=== PATIENT | male | born 1945 | race Caucasian/White ===

== ENCOUNTER → 2017-09-20 15:31 | Outpatient (CLI) | payer BC, MEDICARE, SELFPAY ==
--- NOTE | 2017-09-20 15:35 | DI.RAD.S_ITS ---
PROCEDURE: XR CHEST 2V INDICATIONS: shortness of breath TECHNIQUE: 2 views of the chest were acquired. COMPARISON: None. FINDINGS: Surgical changes and devices: None. Lungs and pleura: No pleural effusions or pneumothorax. Mild appearance of increased pulmonary vascularity. Mediastinum: Mediastinal contours are normal. Heart size is normal. Bones and chest wall: No suspicious bony abnormalities. Soft tissues appear unremarkable. IMPRESSION: Mild increased pulmonary vascularity suggestive of edema. Dictated by: Jesi Madrigal M.D. on 09/20/2017 at 15:29 Approved by: Jesi Madrigal M.D. on 09/20/2017 at 15:32
[2017-09-20 20:52] LABS: Thyroid Stimulating Hormone < 0.02 uIU/mL (0.47-4.68)
== END ==
PROVIDERS: Family Provider Family Medicine; PCP Family Medicine; Visit Provider Family Medicine
DX: E03.9 Hypothyroidism, unspecified (principal); R06.02 Shortness of breath
CPT/HCPCS: 36415; 71046; 84439; 84443

== ENCOUNTER → 2017-12-30 15:48 | Outpatient (CLI) | payer BC, MEDICARE, SELFPAY ==
[2017-12-30 17:25] LABS: Free T4, Direct Thyroxine 1.49 ng/dL (0.78-2.19)
[2017-12-30 17:39] LABS: Thyroid Stimulating Hormone < 0.02 uIU/mL (0.47-4.68)
== END ==
PROVIDERS: Family Provider Family Medicine; PCP Family Medicine; Visit Provider Family Medicine
DX: E03.9 Hypothyroidism, unspecified (principal)
CPT/HCPCS: 36415; 84439; 84443

== ENCOUNTER → 2018-06-18 07:01 | Outpatient (CLI) | payer MEDICARE, OTHER, SELFPAY ==
[2018-06-18 08:12] LABS: Add Manual Diff / Slide Review NO; Basophils Absolute Auto 0 /uL (0-100); Basophils Percent Auto 0.3 % (0-2); Eosinophils Absolute Auto 300 /uL (0-450); Eosinophils Percent Auto 8.2 % (2-4); Hemoglobin 16.1 g/dL (13.5-17.5); Lymphocytes Absolute Auto 600 /uL (1100-4500); Lymphocytes Percent Auto 19.7 % (25-40); Mean Corpuscular HGB Conc 33.6 % (30-36); Mean Corpuscular Hemoglobin 31.7 PG (26-34); Mean Corpuscular Volume 94.5 fL (80-100); Monocytes Absolute Auto 400 /uL (0-900); Monocytes Percent Auto 12.3 % (3-14); Neutrophils Absolute Auto 1900 /uL (1500-7000); Neutrophils Percent Auto 59.5 % (50-75); Platelet Count 257 X10^3/uL (150-400); Red Blood Cell Count 5.09 X10^6/uL (4.5-5.9); Red Cell Distribution Width 13.6 % (11.6-14.8); White Blood Cell Count 3.2 X10^3/uL (4.5-11.0)
[2018-06-18 08:35] LABS: Alanine Aminotransferase 34 IU/L (21-72); Albumin 4.1 g/dL (3.5-5.0); Albumin Globulin Ratio 1.4 (1.0-2.8); Alkaline Phosphatase 72 U/L (38-126); Aspartate Aminotransferase 34 IU/L (17-59); Bilirubin Total 1.6 mg/dL (0.2-1.3); Blood Urea Nitrogen 22 mg/dL (9-20); Calcium 9.1 mg/dL (8.4-10.2); Carbon Dioxide 31 mmol/L (22-32); Chloride 102 mmol/L (98-107); Cholesterol 249 mg/dL (140-199); Estimated Glomerular Filt Rate > 60.0 mL/min (>60); Glucose 100 mg/dL (80-110); HDL Cholesterol 47 mg/dL (40-60); HEMOLYSIS < 15 (0-50); LDL Cholesterol Calculated 187 mg/dL (<100); Potassium 4.3 mmol/L (3.4-5.1); Sodium 140 mmol/L (137-145); Total Protein 7.1 g/dL (6.3-8.2); Triglycerides 74 mg/dL (35-150)
[2018-06-18 09:24] LABS: Thyroid Stimulating Hormone 1.71 uIU/mL (0.47-4.68)
[2018-06-21 15:52] LABS: PSA Free % 20 % (calc) (> 25); PSA, Total 1.5 ng/mL (< 4.1)
== END ==
PROVIDERS: PCP Family Medicine; Visit Provider Family Medicine
DX: E03.9 Hypothyroidism, unspecified (principal); R97.20 Elevated prostate specific antigen [PSA]; Z13.220 Encounter for screening for lipoid disorders
CPT/HCPCS: 36415; 80053; 80061; 84153; 84154; 84439; 84443; 85025

== ENCOUNTER 2019-03-17 06:31 | Day surgery (SDC) | payer MEDICARE, OTHER, BC, SELFPAY ==
[2019-03-17] MEDS: PROPARACAINE 0.5% OPHTH SOL 2 DROPS EYE-OP (07:10)
[2019-03-17] MEDS: CATARACT EYE COMPOUND (10 DROPS/SYRINGE) 3 DROPS EYE-OP (07:11)
[2019-03-17 07:13] VITALS: BP 152/83; PULSE 48; RESP 16; TEMP 36.5; O2SAT 97; BMI 54.8
--- NOTE | 2019-03-17 07:47 | PM.PREOP ---
Pre-operative Note Interval Note History & Physical reviewed/Exam performed by Physician: No Changes to H&P: No
--- NOTE | 2019-03-17 07:47 | PM.OP.1 ---
Operative Date/Time/Diagnoses Pre-op diagnosis: Nuclear cataract right eye Procedure & Clinicians Procedure: Cataract Surgery Same procedure as scheduled: Yes Surgeon: Pedro Li Anesthesia Type: MAC +/- and Sedation Operative Notes Procedure in detail: Patient brought to the operating suite. Tetracaine drops placed in the right eye. The marking instrument was used to diana the vertical and horizontal meridians. Patient was prepped and draped in sterile manner. Wire lid speculum was placed in the eye. The marking instrument was used to diana the 170 degree meridian. Betadine drops were placed on the eye. This was irrigated. Lidocaine jelly was placed on the eye. A paracentesis port was created with a side-port blade. 0.1 mL 1% preservative free lidocaine was injected into the anterior chamber. The anterior chamber was deepened with viscoelastic. 2.6 mm keratome was used to create a temporal clear corneal incision. Cystotome and Utrata forceps were used to create continuous tear capsulorrhexis. Balanced salt solution was used to hydro dissect the nucleus. The phacoemulsification handpiece was inserted and the nucleus was removed using the stop and chop technique. The irrigation aspiration handpiece was inserted and the remaining cortex was removed. Anterior chamber was deepened with viscoelastic. An Duncan [id number] intraocular lens with a power of 20.5 was injected into the capsular bag. Irrigation aspiration handpiece was inserted and the remaining viscoelastic was removed. The lens was rotated to the 170 degree meridian. Incision was hydrated with balanced salt solution and found to be leak free with pressure with Weck-Roxy sponges. 0.1 mL Vigamox injected anterior chamber. 0.3 mL Kenalog 10 mg was injected subconjunctivally. Lid speculum was removed. The patient left the operating room in excellent condition. Complications: none Post-operative Condition: stable Disposition: same day surgery
[2019-03-17] MEDS: PHENYLEPHRINE/LIDOCAINE VIAL (OR) 0.2 ML EYE-OP (07:59)
[2019-03-17] MEDS: MOXIFLOXACIN INJ 5 MG/ML VIAL EYE-OP (07:59)
[2019-03-17] MEDS: TRIAMCINOLONE 50 MG/5 ML VIAL INJ (08:00)
[2019-03-17] MEDS: TETRACAINE 0.5% OPHTH DROPS 4 ML 2 DROPS EYE-OP (08:00)
[2019-03-17] MEDS: BALANCED SALT IRRIG SOLN NO.2 500 ML, EPINEPHrine 1 MG IRR (08:00)
[2019-03-17] MEDS: CHONDROIDTIN/SOD HYALURONATE 1.05 ML SYRINGE INTRAOCULA (08:00)
[2019-03-17] MEDS: LIDOCAINE JELLY 2% 5 ML 1 APPLIC TOP (08:00)
[2019-03-17 08:16] VITALS: BP 156/83; PULSE 47; RESP 16; TEMP 36.7; O2SAT 98
== END 2019-03-17 08:33 | disposition home or self-care (01) ==
PROVIDERS: Visit Provider Ophthalmology
PROC: (CPT 66984; principal; 2019-03-17 07:45)
DX: H25.11 Age-related nuclear cataract, right eye (principal)
CPT/HCPCS: 66984; J0171; J2250; J3010; J3301; V2787

== ENCOUNTER 2019-03-31 06:36 | Day surgery (SDC) | payer MEDICARE, BC, OTHER, SELFPAY ==
[2019-03-31] MEDS: PROPARACAINE 0.5% OPHTH SOL 2 DROPS EYE-OP (07:07)
[2019-03-31] MEDS: CATARACT EYE COMPOUND (10 DROPS/SYRINGE) 3 DROPS EYE-OP (07:08)
[2019-03-31 07:10] VITALS: BP 195/92; PULSE 54; RESP 20; TEMP 36.7; O2SAT 98; BMI 24.4
[2019-03-31] MEDS: LIDOCAINE JELLY 2% 5 ML 1 APPLIC TOP (07:58)
[2019-03-31] MEDS: MOXIFLOXACIN INJ 5 MG/ML VIAL EYE-OP (07:58)
[2019-03-31] MEDS: CHONDROIDTIN/SOD HYALURONATE 1.05 ML SYRINGE INTRAOCULA (07:58)
[2019-03-31] MEDS: TRIAMCINOLONE 50 MG/5 ML VIAL INJ (07:59)
[2019-03-31] MEDS: TETRACAINE 0.5% OPHTH DROPS 4 ML 2 DROPS EYE-OP (07:59)
[2019-03-31] MEDS: PHENYLEPHRINE/LIDOCAINE VIAL (OR) 0.2 ML EYE-OP (07:59)
[2019-03-31] MEDS: BALANCED SALT IRRIG SOLN NO.2 500 ML, EPINEPHrine 1 MG IRR (08:00)
--- NOTE | 2019-03-31 08:08 | PM.PREOP ---
Pre-operative Note Interval Note History & Physical reviewed/Exam performed by Physician: No Changes to H&P: No
--- NOTE | 2019-03-31 08:08 | PM.OP.1 ---
Operative Date/Time/Diagnoses Pre-op diagnosis: Nuclear Cataract Left eye Post-op diagnosis: same Procedure & Clinicians Surgeon: Pedro Li Anesthesia Type: MAC +/- and Sedation Operative Notes Procedure in detail: Patient brought to the operating suite. Tetracaine drops placed in the left eye. The marking instrument was used to diana the vertical and horizontal meridians. Patient was prepped and draped in sterile manner. Wire lid speculum was placed in the eye. The 10 degree meridian was marked. Betadine drops were placed on the eye. This was irrigated. Lidocaine jelly was placed on the eye. A paracentesis port was created with a side-port blade. 0.1 mL 1% preservative free lidocaine was injected into the anterior chamber. The anterior chamber was deepened with viscoelastic. 2.6 mm keratome was used to create a temporal clear corneal incision. Cystotome and Utrata forceps were used to create continuous tear capsulorrhexis. Balanced salt solution was used to hydro dissect the nucleus. The phacoemulsification handpiece was inserted and the nucleus was removed using the stop and chop technique. The irrigation aspiration handpiece was inserted and the remaining cortex was removed. Anterior chamber was deepened with viscoelastic. An Duncan [id number] intraocular lens with a power of 20.0 was injected into the capsular bag. Irrigation aspiration handpiece was inserted and the remaining viscoelastic was removed. The lens was rotated to the 10 degree meridian. Incision was hydrated with balanced salt solution and found to be leak free with pressure with Weck-Roxy sponges. 0.1 mL Vigamox injected anterior chamber. 0.3 mL Kenalog 10 mg was injected subconjunctivally. Lid speculum was removed. The patient left the operating room in excellent condition. Complications: none Post-operative Condition: stable Disposition: same day surgery
[2019-03-31 08:15] VITALS: BP 139/82; PULSE 46; RESP 16; TEMP 36.3; O2SAT 96
--- NOTE | 2019-03-31 08:25 | SUR.PHASEII ---
stable post op, dressing c/d/i.
== END 2019-03-31 08:25 | disposition home or self-care (01) ==
PROVIDERS: PCP Family Medicine; Visit Provider Ophthalmology
PROC: (CPT 66984; principal; 2019-03-31 07:45)
DX: H25.12 Age-related nuclear cataract, left eye (principal)
CPT/HCPCS: 66984; J0171; J2250; J3010; J3301; V2787

== ENCOUNTER → 2019-04-13 06:51 | Outpatient (CLI) | payer MEDICARE, OTHER, SELFPAY ==
[2019-04-13 08:01] LABS: Alanine Aminotransferase 18 IU/L (<50); Albumin 3.8 g/dL (3.5-5.0); Albumin Globulin Ratio 1.4 (1.0-2.8); Alkaline Phosphatase 78 U/L (38-126); Aspartate Aminotransferase 30 IU/L (17-59); BUN Creatinine Ratio 28.8 (6-22); Bilirubin Total 1.4 mg/dL (0.2-1.3); Blood Urea Nitrogen 23 mg/dL (9-20); Calcium 8.7 mg/dL (8.4-10.2); Carbon Dioxide 30 mmol/L (22-32); Chloride 102 mmol/L (98-107); Cholesterol 206 mg/dL (140-199); Estimated Glomerular Filt Rate > 60.0 mL/min (>60); Globulin 2.8 g/dL (1.7-4.1); Glucose 105 mg/dL (80-110); HDL Cholesterol 47 mg/dL (40-60); HEMOLYSIS < 15 (0-50); LDL Cholesterol Calculated 146 mg/dL (<100); Potassium 4.4 mmol/L (3.4-5.1); Sodium 137 mmol/L (137-145); Total Protein 6.6 g/dL (6.3-8.2); Triglycerides 63 mg/dL (35-150)
[2019-04-13 08:02] LABS: Hemoglobin A1C% w Est Avg Glu 5.3 % (4.0-6.0)
[2019-04-13 08:43] LABS: TSH w/ Reflex to FT4 3.63 uIU/mL (0.47-4.68)
== END ==
PROVIDERS: PCP Family Medicine; Visit Provider Family Medicine
DX: E03.9 Hypothyroidism, unspecified (principal); E78.00 Pure hypercholesterolemia, unspecified; Z13.1 Encounter for screening for diabetes mellitus; Z13.220 Encounter for screening for lipoid disorders; E11.9 Type 2 diabetes mellitus without complications
CPT/HCPCS: 36415; 80053; 80061; 83036; 84443

== ENCOUNTER → 2019-09-28 16:22 | Outpatient (CLI) | payer MEDICARE, OTHER, SELFPAY ==
[2019-09-28 18:22] LABS: TSH w/ Reflex to FT4 3.91 uIU/mL (0.47-4.68)
== END ==
PROVIDERS: PCP Family Medicine; Referring Provider Family Medicine; Visit Provider Family Medicine
DX: E03.9 Hypothyroidism, unspecified (principal)
CPT/HCPCS: 36415; 84443

== ENCOUNTER → 2019-10-29 07:10 | Outpatient (CLI) | payer MEDICARE, OTHER, SELFPAY ==
--- NOTE | 2019-10-29 07:11 | DI.US.S_ITS ---
PROCEDURE: US ABD AORTA ANEURYSM SCREEN INDICATIONS: HISTORY SMOKING TECHNIQUE: Real time scanning was performed of the aorta and iliac arteries, with image documentation. COMPARISON: None. FINDINGS: Aorta: Proximal aortic diameter measures 2.2 cm. Mid-aorta measures 1.7 cm. Distal aortic diameter is 1.8 cm. Iliac arteries: Right common iliac artery measures 1.5 cm. Left common iliac artery measures 2.2 x 2.9 cm in maximal axial dimension ovary fusiform 6.9 cm length. IMPRESSION: The aorta is free of aneurysm as is the right common iliac artery but there is aneurysmal dilatation with a fusiform morphology over the left common iliac artery measuring up to 2.2 by 2.9 cm in maximal axial dimension. Dictated by: Ghassan Ibrahim M.D. on 10/29/2019 at 8:21 Approved by: Ghassan Ibrahim M.D. on 10/29/2019 at 8:23
== END ==
PROVIDERS: PCP Family Medicine; Referring Provider Family Medicine; Visit Provider Family Medicine
DX: Z13.6 Encounter for screening for cardiovascular disorders (principal); I72.3 Aneurysm of iliac artery; Z87.891 Personal history of nicotine dependence
CPT/HCPCS: 76706

== ENCOUNTER → 2019-11-23 14:39 | Outpatient (CLI) | payer MEDICARE, OTHER, SELFPAY ==
[2019-11-24 16:26] LABS: COVID19 Sendout Not Detected (Not Detect)
== END ==
PROVIDERS: PCP Family Medicine; Visit Provider Physician Assistant
DX: Z11.59 Encounter for screening for other viral diseases (principal)
CPT/HCPCS: 87635

== ENCOUNTER 2019-11-26 07:36 | Day surgery (SDC) | payer MEDICARE, OTHER, SELFPAY ==
--- NOTE | 2019-11-26 | PATH_ITS ---
[facility] Accession Number: [id number] . 01 Material submitted: . colon - BIOPSY NEAR CECUM . 02 Diagnosis: Cecum, Biopsy: Colonic mucosa with no diagnostic abnormality. Negative for active, chronic, and microscopic colitis. Negative for dysplasia and malignancy. . [facility] 12/01/2019 1553 Local . 02 Electronically signed: . Kirti Garnica MD, Pathologist NPI- [id number] . 01 Gross description: . BIOPSY NEAR CECUM: Received in formalin is 1 fragment(s) of johnston, soft tissue measuring 0.4 x 0.4 x 0.1 cm submitted entirely in 1 cassette(s) /QBJ 11/27/2019 0738 Local . 02 Microscopic: . . . 02 Pathologist provided ICD-10: Z12.11 . 02 CPT . 036376 Performed at: 01 [facility] [address], [place], [place] [id number] MD Jose E Mendoza MD Phone: [phone] Performed at: [facility] [address] [place], [place] [id number] MD Kirti Garnica MD Phone: [phone]
[2019-11-26 08:00] VITALS: BMI 24.4
[2019-11-26 08:03] VITALS: BP 156/88; PULSE 58; RESP 18; TEMP 36.6; O2SAT 97
[2019-11-26] MEDS: LACTATED RINGERS 1,000 ML 200 ML IV (08:03)
--- NOTE | 2019-11-26 08:19 | PM.HP.1 ---
History of Present Illness History of Present Illness Date Patient Seen: 11/26/19 Time Patient Seen: 08:20 Chief complaint: SDC Narrative: The patient is a gentleman whose last colonoscopy was over a decade ago. He is here for screening colonoscopy. He has no personal history of polyps and no family history of colon cancer Patient History Medical History Actinic keratosis (Resolved Unknown) Basal cell carcinoma (Resolved ~03/2015) Benign non-nodular prostatic hyperplasia with lower urinary tract symptoms (07/29/15) BPH (benign prostatic hyperplasia) (Chronic Unknown) COPD (chronic obstructive pulmonary disease) (Chronic) Dupuytren's contracture of both hands (09/27/16) Dupuytren's contracture of both hands (Chronic Unknown) Essential tremor (07/23/17) Hypothyroidism (Chronic 01/20/15) Hypothyroidism (Chronic Unknown) Iliac artery aneurysm, left (Acute) Pure hypercholesterolemia (12/19/15) Rosacea (07/23/17) Rosacea (Chronic Unknown) Surgical History H/O hand surgery (Resolved ~2001) Family & Social History Family History Brother Age: 76 Prostate cancer Brother Age: 74 Type 2 diabetes mellitus without complication Father No problems noted. Mother No problems noted. Social History: household members spouse Tobacco & Substance use: Smoking Status Former smoker alcohol intake current alcohol intake frequency 0-2 drinks per day Substance Use Type does not use Meds Home Medications and Allergies Home Medications Medication Instructions Recorded Confirmed Type naproxen sodium [Aleve] 220 mg PO DAILY #0 10/09/12 11/26/19 History albuterol sulfate 90 mcg/actuation 2 puff INHALATION Q4-6H PRN #8 gram 09/20/17 11/26/19 Rx aerosol inhaler tamsulosin 0.4 mg capsule 0.4 mg PO BEDTIME #90 cap 04/10/19 11/26/19 Rx levothyroxine 88 mcg tablet 88 mcg PO DAILY #90 tab 09/28/19 11/26/19 Rx sodium,potassium,mag sulfates 17.5 177 ml PO DAILY #354 ml 11/17/19 11/26/19 Rx gram-3.13 gram-1.6 gram oral soln melatonin 5 mg 11/26/19 History Allergies Allergy/AdvReac Type Severity Reaction Status Date / Time No Known Drug Allergies Allergy Verified 11/26/19 08:10 Review of Systems Review of Systems ROS: Yes All systems reviewed with the patient and are negative except as otherwise documented Exam Vital Signs (past 8 hours): - 11/26/19 08:03 Temperature 97.9 F Pulse Rate 58 L Respiratory Rate 18 Blood Pressure 156/88 H Pulse Oximetry 97 Oxygen Delivery Method Room Air Narrative Exam Narrative: Pleasant cooperative patient no apparent distress. Lungs are clear to auscultation. No rales or rhonchi. Heart regular rate and rhythm no murmur gallop. Abdomen is soft nontender without mass. No obvious hernias. Patient is alert and oriented x3. Assessment & Plan Assessment & Plan narrative: The patient for a screening colonoscopy. I have discussed the procedure with them. Risks of bleeding, perforation which would necessitate major operation, failure to find remove all lesions, the potential tattoo were all discussed. All questions were answered. They wished to proceed.
--- NOTE | 2019-11-26 08:29 | PM.PREOP ---
Pre-operative Note COVID-19 COVID-19 status: Negative Result date/Date tested (Pos, Neg/Pending): 11/23/19 Interval Note History & Physical reviewed/Exam performed by Physician: Yes Changes to H&P: No ASA Class (for procedural sedation): I
[2019-11-26] MEDS: MIDAZOLAM 5 MG/5 ML VIAL IV (08:44)
[2019-11-26] MEDS: fentaNYL 250 MCG/5 ML INJ IV (08:49)
--- NOTE | 2019-11-26 09:05 | PM.OP.ENDO ---
Operative Date/Time/Diagnoses Date of procedure: 11/26/19 Time of procedure: 09:05 Pre-op diagnosis: Screening exam for colon cancer. Last colonoscopy over a decade ago. Post-op diagnosis: same (One tiny lesion near the cecum. May not be neoplastic. Sigmoid diverticulosis.) Procedure & Clinicians Study performed: Colonoscopy with cold biopsy Same procedure as scheduled: Yes Indications: Screening Surgeon: Anthony Simms Procedure Notes SCOAP/Timeout: Perform Procedure in detail: The patient was placed in the left lateral decubitus position and underwent IV sedation directed by the surgeon consisting of fentanyl and Versed. Digital exam was remarkable for an enlarged prostate. No palpable masses.. The scope was inserted and advanced through the rectum into the sigmoid, descending, transverse, and ascending colon. There was a great deal of tortuosity in the sigmoid and diverticulosis. Pressure had to be applied to the abdomen in order to reach the cecum. The cecum was reached identified by the ileocecal valve and the appendiceal opening. There was a tiny lesion just distal to the cecum which I biopsied and removed. I am not even sure this is neoplastic. The scope was gradually brought out. No other lesions were found . The scope ultimately was retroflexed in the rectum. The appearance was normal. The scope was removed and the patient tolerated the procedure well. Prep was excellent. Scope withdrawal time: 7 minutes Sedation minutes: 31 Findings: diverticulosis (Sigmoid colon), polyp (Possible in the ascending colon near the cecum.) and other findings (Enlarged prostate) Specimen(s): other (Lesion her cecum) Complications: none Post-procedure Recommendations: Colonscopy in 5 years (If the biopsy is not neoplastic then no further screening colonoscopies are recommended due to age. Await pathology report), High fiber diet (Eat a lot of fruit and vegetables) and Other recommendation (Consider taking Metamucil daily) Follow up: as needed Disposition: PACU
[2019-11-26 09:12] VITALS: BP 146/83; PULSE 55; RESP 12; TEMP 36.2; O2SAT 96
[2019-11-26 09:14] VITALS: BP 161/86; PULSE 66; RESP 14; TEMP 36.5; O2SAT 95
--- NOTE | 2019-11-26 09:15 | SUR.PHASEI ---
Patient awake. Tolerating po.
[2019-11-26 09:20] VITALS: BP 147/79; PULSE 56; RESP 12; O2SAT 94
[2019-11-26 09:25] VITALS: BP 148/82; PULSE 65; RESP 16; TEMP 36.2; O2SAT 95
[2019-11-26 09:40] VITALS: BP 127/68; PULSE 49; RESP 16; TEMP 36.6; O2SAT 94
== END 2019-11-26 09:50 | disposition home or self-care (01) ==
PROVIDERS: PCP Family Medicine; Referring Provider Family Medicine; Visit Provider Specialist
PROC: 0DJD8ZZ Inspection of Lower Intestinal Tract, Via Natural or Artificial Opening Endoscopic (ICD-10-PCS; CPT 45378; principal; 2019-11-26 08:45)
DX: Z12.11 Encounter for screening for malignant neoplasm of colon (principal); J44.9 Chronic obstructive pulmonary disease, unspecified; K57.30 Diverticulosis of large intestine without perforation or abscess without bleeding; N40.1 Benign prostatic hyperplasia with lower urinary tract symptoms
CPT/HCPCS: 45380; 99152; 99153; J2250; J3010

== ENCOUNTER → 2020-04-04 09:54 | Outpatient (CLI) | payer MEDICARE, OTHER, SELFPAY ==
[2020-04-04 10:48] LABS: Alanine Aminotransferase 31 IU/L (<50); Albumin 3.9 g/dL (3.5-5.0); Albumin Globulin Ratio 1.4 (1.0-2.8); Alkaline Phosphatase 88 U/L (38-126); Aspartate Aminotransferase 38 IU/L (17-59); BUN Creatinine Ratio 29.7 (6-22); Bilirubin Total 1.3 mg/dL (0.2-1.3); Blood Urea Nitrogen 27 mg/dL (9-20); Carbon Dioxide 32 mmol/L (22-32); Chloride 103 mmol/L (98-107); Cholesterol 143 mg/dL (140-199); Estimated Glomerular Filt Rate > 60.0 mL/min (>60); Globulin 2.8 g/dL (1.7-4.1); Glucose 102 mg/dL (80-110); HDL Cholesterol 50 mg/dL (40-60); HEMOLYSIS < 15 (0-50); LDL Cholesterol Calculated 82 mg/dL (<100); Potassium 4.6 mmol/L (3.4-5.1); Sodium 138 mmol/L (137-145); Total Protein 6.7 g/dL (6.3-8.2); Triglycerides 54 mg/dL (35-150)
[2020-04-04 11:25] LABS: TSH w/ Reflex to FT4 2.66 uIU/mL (0.47-4.68)
== END ==
PROVIDERS: PCP Family Medicine; Referring Provider Family Medicine; Visit Provider Family Medicine
DX: E03.9 Hypothyroidism, unspecified (principal); Z12.5 Encounter for screening for malignant neoplasm of prostate; E78.00 Pure hypercholesterolemia, unspecified; I72.3 Aneurysm of iliac artery
CPT/HCPCS: 36415; 80053; 80061; 84443; G0103

== ENCOUNTER 2020-07-17 17:31 | Emergency (ER) | payer MEDICARE, OTHER, SELFPAY ==
[2020-07-17] VITALS (13 sets, daily range): BP systolic 142–196; BP diastolic 78–109; PULSE 54–63; RESP 18–23; TEMP 36.4; O2SAT 92–98; BMI 26.2
--- NOTE | 2020-07-17 17:50 | DI.CT.S_ITS ---
PROCEDURE: CT HEAD/BRAIN WO CON INDICATIONS: possible seizure TECHNIQUE: Noncontrast 4.5 mm thick angled axial sections acquired from the foramen magnum to the vertex, with coronal and sagittal reformats. For radiation dose reduction, the following was used: automated exposure control, adjustment of mA and/or kV according to patient size. COMPARISON: None. FINDINGS: Image quality: Excellent. CSF spaces: Basal cisterns are patent. No extra-axial fluid collections. The ventricles are symmetric in size and shape. Brain: No intracranial bleeds or masses. There is cerebral volume loss for age, with resultant ventricular and sulcal prominence. There are periventricular and deep white matter chronic small vessel ischemic changes. There is intracranial internal carotid artery atherosclerosis. Skull and face: Calvarium and visualized facial bones appear intact, without suspicious lesions. Sinuses: Visualized sinuses and mastoids are clear. IMPRESSION: No acute intracranial process. Dictated by: Jason Rosales M.D. on 07/17/2020 at 18:33 Approved by: Jason Rosales M.D. on 07/17/2020 at 18:37
--- NOTE | 2020-07-17 18:09 | ED_ITS ---
HPI - Neuro Symptoms/Deficit General Chief Complaint: Neuro Symptoms/Deficit Stated Complaint: POSS SEIZURE Time Seen by Provider: 07/17/20 17:44 Source: patient Mode of arrival: Family Vehicle Limitations: no limitations History of Present Illness HPI Narrative: 74M former smoker with history of COPD, HTN, hypothyroid presents with family and the chief complaint of seizurelike activity a few hours prior to arrival. He was home alone and this was unwitnessed. He did lose control of his bladder. He is unsure how long his episode lasted but he states he started feeling a bit lightheaded and then became short of breath, he does state that he did not lose consciousness and was aware of the entire episode. He denies any chest pain or shortness of breath. He is completely at baseline in all symptoms had resolved prior to his arrival. He denies any history of the same. He denies any recent travel, history of clot, cancer. He does state that over the past week or 2 he has developed some anterior chest burning when exerting himself heavily, with hikes such as [place]. He denies any known cardiac hi story. He denies any prior stress test or echocardiogram, or heart cath On Anticoagulants: No Related Data Home Medications Medication Instructions Recorded Confirmed naproxen sodium [Aleve] 220 mg PO DAILY #0 10/09/12 07/04/20 melatonin 5 mg 11/26/19 07/04/20 Super Beta Advanced PO 04/04/20 07/04/20 aspirin 81 mg tablet,delayed 81 mg PO DAILY 04/04/20 07/04/20 release atorvastatin 80 mg tablet 40 mg PO DAILY tab 04/04/20 07/04/20 Previous Rx's Medication Instructions Recorded sodium,potassium,mag sulfates 17.5 177 ml PO DAILY #354 ml 11/17/19 gram-3.13 gram-1.6 gram oral soln levothyroxine 88 mcg tablet 88 mcg PO DAILY #90 tab 04/01/20 tamsulosin 0.4 mg capsule 0.4 mg PO BEDTIME #90 cap 04/01/20 lisinopril 10 mg tablet 10 mg PO DAILY #90 tab 05/03/20 albuterol sulfate 90 mcg/actuation 2 puff INHALATION Q4-6H PRN #18 g 07/11/20 aerosol inhaler Allergies Allergy/AdvReac Type Severity Reaction Status Date / Time No Known Drug Allergies Allergy Verified 07/17/20 17:39 Review of Systems Constitutional Constitutional: Denies chills, Denies fatigue, Denies fever(s), Denies frequent falls, Denies lethargy and Denies weakness Eyes Eyes: Denies change in vision, Denies eye discharge, Denies irritation and Denies loss of vision ENT Ears, Nose, Mouth, and Throat: Denies change in voice, Denies dizziness, Denies neck pain, Denies sore throat and Denies throat swelling Cardiovascular Cardiovascular: Denies chest pain, Denies irregular heart rhythm, Reports lightheadedness, Denies palpitations, Denies dyspnea, Denies dyspnea on exertion and Denies orthopnea Respiratory Respiratory: Denies cough, Denies dyspnea, Denies dyspnea on exertion and Denies wheezing Gastrointestinal Gastrointestinal: Denies abdominal pain, Denies change in bowel habits, Denies diarrhea, Denies nausea and Denies vomiting Musculoskeletal Musculoskeletal: Denies neck pain and Denies numbness Integumentary/Breasts Skin/Breast: Denies pruritus, Denies erythema, Denies rash and Denies wounds Neurologic Neurologic: Denies behavioral changes, Denies confusion, Denies dizziness, Denies frequent falls, Denies loss of vision, Denies numbness and Denies weakness Psychiatric Psychiatric: Denies anxiety, Denies behavioral changes, Denies confusion, Denies depression, Denies homicidal ideation and Denies suicidal ideation Endocrine Endocrine: Denies fatigue, Denies flushing and Denies palpitations Hematologic/Lymphatic Hematologic/Lymphatic: Denies easy bruising On Anticoagulants: No Allergic/Immunologic Allergic/Immunologic: Denies urticaria, Denies throat swelling and Denies wheezing Patient History Medical History (Updated 07/18/20 @ 00:08 by Lance Leon DO) Actinic keratosis (Unknown) Basal cell carcinoma (~03/2015) Benign non-nodular prostatic hyperplasia with lower urinary tract symptoms (07/29/15) BPH (benign prostatic hyperplasia) (Unknown) Bradycardia COPD (chronic obstructive pulmonary disease) Dupuytren's contracture of both hands (09/27/16) Dupuytren's contracture of both hands (Unknown) Essential tremor (07/23/17) Hypertension Hypothyroidism (01/20/15) Hypothyroidism (Unknown) Iliac artery aneurysm, left Pure hypercholesterolemia (12/19/15) Rosacea (07/23/17) Rosacea (Unknown) Surgical History H/O hand surgery (~2001) Family History Brother Age: 76 Prostate cancer Brother Age: 74 Type 2 diabetes mellitus without complication Father No problems noted. Mother No problems noted. Social History household members: spouse Smoking Status: Former smoker alcohol intake: current Smoking Status: Former smoker alcohol intake frequency: 0-2 drinks per day Substance Use Type: does not use Exam Narrative Exam Narrative: GENERAL: [74] year old patient appears stated age. Well- nourished, well-developed patient, in mild distress. HEAD: Atraumatic. Normocephalic. EYES: Pupils equal round and reactive. Extraocular motions intact. No scleral icterus. No injection or drainage. ENT: Nose without bleeding, purulent drainage. Throat without erythema, tonsillar hypertrophy or exudate. Airway patent. NECK: Trachea midline. Non tender CARDIOVASCULAR: Regular rate and rhythm without murmurs, gallops, or rubs. RESPIRATORY: Clear to auscultation. Breath sounds equal bilaterally. No wheezes, rales, or rhonchi. GASTROINTESTINAL: Abdomen soft, non-tender, nondistended. EXTREMITIES: No edema or joint tenderness. BACK: Nontender without deformity or crepitance. No flank tenderness. NEURO: AOx3. SKIN: No rash or erythema of visible areas Initial Vital Signs Initial Vital Signs: Vital Signs Temperature 97.6 F 07/17/20 17:33 Pulse Rate 63 07/17/20 17:33 Respiratory Rate 18 07/17/20 17:33 Blood Pressure 196/109 H 07/17/20 17:33 Pulse Oximetry 98 07/17/20 17:33 Course Orders Ordered: ED Orders 07/17/20 17:44 EKG-12 Lead Stat 07/17/20 17:50 CT head/brain wo con Stat 07/17/20 18:14 Basic Metabolic Panel Stat Complete Blood Count AUTO DIFF Stat D Dimer Stat Magnesium Stat Partial Thromboplastin Time Stat Prolactin Stat Prothrombin Time INR Stat 07/17/20 18:50 XR chest 1V Stat Troponin & CK Cardiac Panel Stat 07/17/20 19:17 EKG-12 Lead Stat 07/17/20 19:20 COVID19 - ADMIT ([employer] swab/PCR) Stat 07/17/20 19:40 Urinalysis Screen (Dip Only) Stat Urine Drug Screen, Rapid Stat Urine Microscopic Stat 07/17/20 19:49 CT angio chest PE protocol Stat Heparin Sodium/Dextrose (Heparin Drip) 25,000 unit in 500 mls @ 19.922 mls/hr IV CONT ANNIE; Protocol Last Admin: 07/17/20 20:21 Dose: 12 units/kg/hr, 19.922 mls/hr Documented by: ALISSON Nitroglycerin (Nitroglycerin 0.4 Mg Sl Tab) 0.4 mg SL [id number] PRN PRN Reason: Chest Pain Last Admin: 07/17/20 20:43 Dose: 0.4 mg Documented by: ALISSON Discontinued Medications Aspirin (Aspirin 81 Mg Chew Tab) 324 mg PO NOW ONE Stop: 07/17/20 19:28 Last Admin: 07/17/20 20:15 Dose: 324 mg Documented by: ALISSON Heparin Sodium (Porcine) (Heparin 5,000 Unit/Ml Vial) 5,000 unit IV NOW ONE Stop: 07/17/20 19:27 Last Admin: 07/17/20 20:29 Dose: 5,000 unit Documented by: ALISSON Metoprolol Tartrate (Metoprolol Tartrate 5 Mg/5 Ml Inj) 5 mg IV NOW ONE Stop: 07/17/20 19:28 Last Admin: 07/17/20 20:17 Dose: 5 mg Documented by: ALISSON Reevaluation(s) Reevaluation #1: Patient states that he does have a sensation of that burning in his anterior chest which reminds him of what it feels like when he has been exerting himself lately. He is given nitroglycerin sublingual x1 which completely resolved his pain. Consultations Consultation #1: Initial call to our hospitalist here at [facility], but given significantly elevated troponin patient will need transfer to facility with inpatient cardiology Consultation #2: Consultation with on-call Cardiology at [facility], Dr. Zachariah Johnson who agrees with diagnosis and plan recommends transfer to [facility] and admission to the hospitalist L Consultation #3: Hospitalist (Dr. Felton) is happy to accept patient Vital Signs Vital signs: Vital Signs - 8 hr 07/17/20 17:33 07/17/20 20:37 07/17/20 20:45 Temperature 97.6 F Pulse Rate 63 63 63 Respiratory Rate 18 22 23 Blood Pressure 196/109 H 147/85 H Pulse Oximetry 98 93 92 07/17/20 21:00 07/17/20 21:15 07/17/20 21:30 Temperature Pulse Rate 58 L 56 L 57 L Respiratory Rate 20 20 20 Blood Pressure 147/85 H 147/85 H 154/78 H Pulse Oximetry 92 92 07/17/20 21:45 07/17/20 22:00 07/17/20 22:15 Temperature Pulse Rate 54 L 56 L 56 L Respiratory Rate 20 23 19 Blood Pressure 143/80 H 142/88 H 145/90 H Pulse Oximetry 94 94 07/17/20 22:30 07/17/20 22:45 07/17/20 23:00 Temperature Pulse Rate 59 L 56 L 57 L Respiratory Rate 21 18 20 Blood Pressure 149/90 H 149/90 H Pulse Oximetry 94 95 94 07/17/20 23:15 Temperature Pulse Rate 57 L Respiratory Rate 19 Blood Pressure 158/92 H Pulse Oximetry 94 MDM - Neuro Symptoms/Deficit Lab Data Result diagrams: 07/17/20 18:14 07/17/20 18:14 Labs: Lab Results 07/17/20 07/17/20 07/17/20 Range/Units 18:14 18:14 18:14 WBC 6.3 (4.5-11.0) X10^3/uL RBC 4.06 L (4.5-5.9) X10^6/uL Hgb 12.8 L (13.5-17.5) g/dL Hct 38.1 L (41-53) % MCV 93.8 (80-100) fL MCH 31.5 (26-34) PG MCHC 33.6 (30-36) % RDW 13.6 (11.6-14.8) % Plt Count 206 (150-400) X10^3/uL Neut % (Auto) 83.1 H (50-75) % Lymph % (Auto) 5.2 L (25-40) % [place] % (Auto) 8.7 (3-14) % Eos % (Auto) 2.8 (2-4) % Baso % (Auto) 0.2 (0-2) % Neut # (Auto) 5200 (0581-9003) /uL Lymph # (Auto) 300 L (7561-9326) /uL [place] # (Auto) 500 (0-900) /uL Eos # (Auto) 200 (0-450) /uL Baso # (Auto) 0 (0-100) /uL PT 12.5 (10.1-12.7) SECONDS INR 1.1 (0.9-1.3) APTT 31 (26.4-36.2) SECONDS D-Dimer 914 H (<230) ng/mL Sodium 137 (137-145) mmol/L Potassium 4.3 (3.4-5.1) mmol/L Chloride 103 (98-107) mmol/L Carbon Dioxide 29 (22-32) mmol/L BUN 28 H (9-20) mg/dL Creatinine 0.84 (0.66-1.25) mg/dL Estimated GFR > 60.0 (>60) mL/min BUN/Creatinine Ratio 33.3 H (6-22) Glucose 134 H (80-110) mg/dL Calcium 9.1 (8.4-10.2) mg/dL Magnesium 1.6 (1.6-2.3) mg/dL Total Creatine Kinase (55-170) U/L CK-MB (CK-2) (<2.37) ng/mL CK-MB (CK-2) Rel Index (1.5-5.0) % Troponin I (0.01-0.034) ng/mL Prolactin 19.5 H (3.7-17.9) ng/mL Urine Color Urine Appearance Urine pH (4.5-8.0) Ur Specific [place] (1.000-1.035) Urine Protein (Negative) Urine Glucose (UA) (Negative) g/dL Urine Ketones (NEGATIVE) Urine Occult Blood (Negative) Urine Nitrate (Negative) Urine Bilirubin (NEGATIVE) Urine Urobilinogen (0.2) E.U./dL Ur Leukocyte Esterase (NEGATIVE) Urine RBC (0-5/HPF) Urine WBC (0-5/HPF) Amorphous Sediment Urine Bacteria (None) Ur Culture Indicated? U Opiates 300ng/mL cut (Negative) Ur Oxycodone Screen (Negative) Urine Methadone Screen (Negative) Ur Barbiturates Screen (Negative) U Tricyclic Antidepress (Negative) Ur Phencyclidine Scrn (Negative) Ur Amphetamines Screen (Negative) U Methamphetamines Scrn (Negative) Ur MDMA Scrn (Ecstasy) (Negative) U Benzodiazepines Scrn (Negative) Urine Cocaine Screen (Negative) U Marijuana (THC) Screen (Negative) SARS-CoV-2 (PCR) (Negative) 07/17/20 07/17/20 07/17/20 Range/Units 18:50 19:20 19:40 WBC (4.5-11.0) X10^3/uL RBC (4.5-5.9) X10^6/uL Hgb (13.5-17.5) g/dL Hct (41-53) % MCV (80-100) fL MCH (26-34) PG MCHC (30-36) % RDW (11.6-14.8) % Plt Count (150-400) X10^3/uL Neut % (Auto) (50-75) % Lymph % (Auto) (25-40) % [place] % (Auto) (3-14) % Eos % (Auto) (2-4) % Baso % (Auto) (0-2) % Neut # (Auto) (3630-0002) /uL Lymph # (Auto) (4202-7660) /uL [place] # (Auto) (0-900) /uL Eos # (Auto) (0-450) /uL Baso # (Auto) (0-100) /uL PT (10.1-12.7) SECONDS INR (0.9-1.3) APTT (26.4-36.2) SECONDS D-Dimer (<230) ng/mL Sodium (137-145) mmol/L Potassium (3.4-5.1) mmol/L Chloride (98-107) mmol/L Carbon Dioxide (22-32) mmol/L BUN (9-20) mg/dL Creatinine (0.66-1.25) mg/dL Estimated GFR (>60) mL/min BUN/Creatinine Ratio (6-22) Glucose (80-110) mg/dL Calcium (8.4-10.2) mg/dL Magnesium (1.6-2.3) mg/dL Total Creatine Kinase 128 (55-170) U/L CK-MB (CK-2) 4.60 H (<2.37) ng/mL CK-MB (CK-2) Rel Index 3.6 (1.5-5.0) % Troponin I 1.230 H* (0.01-0.034) ng/mL Prolactin (3.7-17.9) ng/mL Urine Color Urine Appearance Urine pH (4.5-8.0) Ur Specific [place] (1.000-1.035) Urine Protein (Negative) Urine Glucose (UA) (Negative) g/dL Urine Ketones (NEGATIVE) Urine Occult Blood (Negative) Urine Nitrate (Negative) Urine Bilirubin (NEGATIVE) Urine Urobilinogen (0.2) E.U./dL Ur Leukocyte Esterase (NEGATIVE) Urine RBC 1-5/hpf (0-5/HPF) Urine WBC 0-1/hpf (0-5/HPF) Amorphous Sediment 1+ Urine Bacteria None seen (None) Ur Culture Indicated? Cult not indicated U Opiates 300ng/mL cut (Negative) Ur Oxycodone Screen (Negative) Urine Methadone Screen (Negative) Ur Barbiturates Screen (Negative) U Tricyclic Antidepress (Negative) Ur Phencyclidine Scrn (Negative) Ur Amphetamines Screen (Negative) U Methamphetamines Scrn (Negative) Ur MDMA Scrn (Ecstasy) (Negative) U Benzodiazepines Scrn (Negative) Urine Cocaine Screen (Negative) U Marijuana (THC) Screen (Negative) SARS-CoV-2 (PCR) Negative (Negative) 07/17/20 07/17/20 Range/Units 19:40 19:40 WBC (4.5-11.0) X10^3/uL RBC (4.5-5.9) X10^6/uL Hgb (13.5-17.5) g/dL Hct (41-53) % MCV (80-100) fL MCH (26-34) PG MCHC (30-36) % RDW (11.6-14.8) % Plt Count (150-400) X10^3/uL Neut % (Auto) (50-75) % Lymph % (Auto) (25-40) % [place] % (Auto) (3-14) % Eos % (Auto) (2-4) % Baso % (Auto) (0-2) % Neut # (Auto) (3793-3852) /uL Lymph # (Auto) (4680-9096) /uL [place] # (Auto) (0-900) /uL Eos # (Auto) (0-450) /uL Baso # (Auto) (0-100) /uL PT (10.1-12.7) SECONDS INR (0.9-1.3) APTT (26.4-36.2) SECONDS D-Dimer (<230) ng/mL Sodium (137-145) mmol/L Potassium (3.4-5.1) mmol/L Chloride (98-107) mmol/L Carbon Dioxide (22-32) mmol/L BUN (9-20) mg/dL Creatinine (0.66-1.25) mg/dL Estimated GFR (>60) mL/min BUN/Creatinine Ratio (6-22) Glucose (80-110) mg/dL Calcium (8.4-10.2) mg/dL Magnesium (1.6-2.3) mg/dL Total Creatine Kinase (55-170) U/L CK-MB (CK-2) (<2.37) ng/mL CK-MB (CK-2) Rel Index (1.5-5.0) % Troponin I (0.01-0.034) ng/mL Prolactin (3.7-17.9) ng/mL Urine Color Yellow Urine Appearance Clear Urine pH 5.0 (4.5-8.0) Ur Specific [place] 1.025 (1.000-1.035) Urine Protein 2+ H (Negative) Urine Glucose (UA) Negative (Negative) g/dL Urine Ketones Negative (NEGATIVE) Urine Occult Blood 2+ H (Negative) Urine Nitrate Negative (Negative) Urine Bilirubin Negative (NEGATIVE) Urine Urobilinogen 0.2 (0.2) E.U./dL Ur Leukocyte Esterase Negative (NEGATIVE) Urine RBC (0-5/HPF) Urine WBC (0-5/HPF) Amorphous Sediment Urine Bacteria (None) Ur Culture Indicated? U Opiates 300ng/mL cut Negative (Negative) Ur Oxycodone Screen Negative (Negative) Urine Methadone Screen Negative (Negative) Ur Barbiturates Screen Negative (Negative) U Tricyclic Antidepress Negative (Negative) Ur Phencyclidine Scrn Negative (Negative) Ur Amphetamines Screen Negative (Negative) U Methamphetamines Scrn Negative (Negative) Ur MDMA Scrn (Ecstasy) Negative (Negative) U Benzodiazepines Scrn Negative (Negative) Urine Cocaine Screen Negative (Negative) U Marijuana (THC) Screen Negative (Negative) SARS-CoV-2 (PCR) (Negative) Urine Dip Bedside Urine Glucose Negative Bedside Urine Bilirubin - Negative Bedside Urine Ketone - Negative Urine Specific [place] 1.030 Bedside Urine Occult Blood + Bedside Urine pH 6 Bedside Urine Protein +++ 300 Bedside Urine Urobilinogen - Negative Bedside Urine Nitrite - Negative Bedside Urine Leukocytes - Negative Esterase Imaging Data Chest x-ray: Radiologist's Impression: [address] [id number] ReportSigned Patient: Vignesh Sethi WMR#: [id number]: 1945cct:[id number]/Sex: 74 / MDate of Service: 07/17/20Loc: EDAccession Number: [id number] Procedure: XR chest 1V Ordering Provider: Lance Leon D.O. PROCEDURE: XR CHEST 1V INDICATIONS: near syncope TECHNIQUE: One view of the chest was acquired. COMPARISON: [facility], , XR CHEST 2V, 09/20/2017, 15:24. FINDINGS: Surgical changes and devices: None. Scattered subsegmental atelectasis and/or scarring. No focal consolidation. No pleural effusions or pneumothorax. High-density 1 mm calcified granuloma projecting in the right upper lobe appears present on the prior study. Mediastinum: Mediastinal contours appear normal. Heart size is normal. Bones and chest wall: Chronic multiple right rib fractures as before IMPRESSION: Scattered subsegmental atelectasis and/or scarring. No focal consolidation. Dictated by: Jason Rosales M.D. on 07/17/2020 at 20:06 Approved by: Jason Rosales M.D. on 07/17/2020 at 20:07 CT scan - head: Radiologist's Impression: [address] [id number] Scan ReportSigned Patient: Vignesh Sethi WMR#: [id number]: 7Acct:[id number]/Sex: 74 / MDate of Service: 07/17/20Loc: EDAccession Number: [id number] Procedure: CT head/brain wo con Ordering Provider: Dorinda Covarrubias D.O. PROCEDURE: CT HEAD/BRAIN WO CON INDICATIONS: possible seizure TECHNIQUE: Noncontrast 4.5 mm thick angled axial sections acquired from the foramen magnum to the vertex, with coronal and sagittal reformats. For radiation dose reduction, the following was used: automated exposure control, adjustment of mA and/or kV according to patient size. COMPARISON: None. FINDINGS: Image quality: Excellent. CSF spaces: Basal cisterns are patent. No extra-axial fluid collections. The ventricles are symmetric in size and shape. Brain: No intracranial bleeds or masses. There is cerebral volume loss for age, with resultant ventricular and sulcal prominence. There are periventricular and deep white matter chronic small vessel ischemic changes. There is intracranial internal carotid artery atherosclerosis. Skull and face: Calvarium and visualized facial bones appear intact, without suspicious lesions. Sinuses: Visualized sinuses and mastoids are clear. IMPRESSION: No acute intracranial process. Dictated by: Jason Rosales M.D. on 07/17/2020 at 18:33 Approved by: Jason Rosales M.D. on 07/17/2020 at 18:37 CT scan - chest: Radiologist's Impression: [address] Scan ReportSigned Patient: Vignesh Sethi WMR#: [id number]: 7Acct:[id number]/Sex: 74 / MDate of Service: 07/17/20Loc: EDAccession Number: [id number] Procedure: CT angio chest PE protocol Ordering Provider: Lance Leon D.O. PROCEDURE: CT ANGIO CHEST PE PROTOCOL INDICATIONS: sudden event, near syncope, critical D dimer, troponin TECHNIQUE: After the administration of intravenous contrast, 2 mm thick sections acquired from the pulmonary apices to the posterior costophrenic angles. 3-dimensional maximum intensity projection (MIP) coronal and sagittal reformats were then acquired through the thorax. For radiation dose reduction, the following was used: automated exposure control, adjustment of mA and/or kV according to patient size. COMPARISON: None. FINDINGS: Image quality: Excellent. Pulmonary arteries: Pulmonary arteries are normal in size, and demonstrate no intraluminal filling defects to suggest central pulmonary embolism. Lungs and pleura: There are patchy opacities, and smooth interlobular septal thickening.. No pleural effusions or pneumothorax. Central and peripheral airways are patent. Mediastinum: Heart size is mildly enlarged, without pericardial effusion. Coronary artery calcifications are present. There is reflex of contrast into the hepatic veins suggestive of decreased cardiac output. No pathologically enlarged mediastinal lymphadenopathy although calcified lymph nodes are present. Thoracic aorta is normal in caliber and enhancement. Esophagus is normal in caliber, without hiatal hernia. Bones and chest wall: No suspicious bony lesions. Ribs and thoracic spine appear intact throughout. Thyroid is grossly unremarkable No axillary or supraclavicular adenopathy. Abdomen: Visualized upper abdominal solid organs appear normal in the early arterial phase of enhancement. IMPRESSION: No evidence of pulmonary embolism. No aortic dissection identified. No acute consolidation. Scattered subsegmental atelectasis and/or scarring. No focal consolidation. Diffuse interlobular septal line thickening and patchy ground- glass opacities raising possibility of early pulmonary edema. Multiple 3-4 mm pulmonary nodules as detailed on the montage image. Recommend further evaluation with follow-up in 1 year to exclude early metastatic or malignant possibilities Dictated by: Jason Rosales M.D. on 07/17/2020 at 20:22 Approved by: Jason Rosales M.D. on 07/17/2020 at 20:28 ECG Data Interpretation: 1. Normal sinus rhythm, rate 68, no ST elevation or depression. No hyperacute or inverted T-waves. No ectopy 2. Largely unchanged. No obvious occlusive changes MDM Narrative Medical decision making narrative: Initial mention of seizure-type concern is thought to be very unlikely. Patient felt lightheaded and near syncopal but was completely aware of the circumstances. CT of the head was performed but demonstrated no abnormality. Concern for arrhythmia causing his near syncope. Her furthermore, given increased exercise intolerance and exertional type symptoms over the past week or so in the setting of critically elevated troponin and resolution with nitro would suggest that primary diagnosis is cardiac ischemia until proven otherwise. CT angiogram was performed due to positive D-dimer to rule out pulmonary embolus as cause of the patient's symptoms and lab abnormalities, however this was performed but no PE noted Critical Care Time Critical Care Time Critical Care Time: Yes Total Critical Care Time: 30 Attestation: The high probability of a clinically significant, sudden or life threatening deterioration of the [CV] system(s) required my full and direct attention, intervention and personal management. The aggregate critical care time was [30] minutes. This time is in addition to time spent performing reported procedures but includes the following: [x] Data Review and interpretation [x] Patient assessment and monitoring of vital signs [x] Documentation [x] Medication orders and management Discharge Plan Departure Patient Disposition: [facility] Clinical Impression: Angina pectoris, unstable, Acute non-ST elevation myocardial infarction (NSTEMI) Prescriptions: No Action naproxen sodium [Aleve] 220 MG tablet 220 mg PO DAILY Qty: 0 RF: 0 sodium,potassium,mag sulfates 17.5-3.13-1.6 gram recon soln 177 ml PO DAILY Qty: 354 RF: 0 tamsulosin 0.4 mg capsule 0.4 mg PO BEDTIME Qty: 90 RF: 1 levothyroxine 88 mcg tablet 88 mcg PO DAILY Qty: 90 RF: 1 albuterol sulfate 90 mcg/actuation HFA aerosol inhaler 2 puff INHALATION Q4-6H PRN (Reason: shortness of breath or wheezing) Qty: 18 RF: 5 atorvastatin 80 mg tablet 40 mg PO DAILY RF: 0 aspirin 81 mg tablet,delayed release (DR/EC) 81 mg PO DAILY RF: 0 Super Beta Advanced PO RF: 0 lisinopril 10 mg tablet 10 mg PO DAILY Qty: 90 RF: 3 melatonin 5 mg Tablet 5 mg RF: 0 Referrals: Elbert Betancourt DO [Primary Care Provider] -
[2020-07-17 18:22] LABS: Add Manual Diff / Slide Review NO; Basophils Absolute Auto 0 /uL (0-100); Basophils Percent Auto 0.2 % (0-2); Eosinophils Absolute Auto 200 /uL (0-450); Eosinophils Percent Auto 2.8 % (2-4); Hematocrit 38.1 % (41-53); Hemoglobin 12.8 g/dL (13.5-17.5); Lymphocytes Absolute Auto 300 /uL (1100-4500); Lymphocytes Percent Auto 5.2 % (25-40); Mean Corpuscular HGB Conc 33.6 % (30-36); Mean Corpuscular Hemoglobin 31.5 PG (26-34); Mean Corpuscular Volume 93.8 fL (80-100); Monocytes Absolute Auto 500 /uL (0-900); Monocytes Percent Auto 8.7 % (3-14); Neutrophils Absolute Auto 5200 /uL (1500-7000); Neutrophils Percent Auto 83.1 % (50-75); Platelet Count 206 X10^3/uL (150-400); Red Blood Cell Count 4.06 X10^6/uL (4.5-5.9); Red Cell Distribution Width 13.6 % (11.6-14.8); White Blood Cell Count 6.3 X10^3/uL (4.5-11.0)
[2020-07-17 18:34] LABS: BUN Creatinine Ratio 33.3 (6-22); Blood Urea Nitrogen 28 mg/dL (9-20); Calcium 9.1 mg/dL (8.4-10.2); Carbon Dioxide 29 mmol/L (22-32); Chloride 103 mmol/L (98-107); Estimated Glomerular Filt Rate > 60.0 mL/min (>60); Glucose 134 mg/dL (80-110); HEMOLYSIS < 15 (0-50); Magnesium 1.6 mg/dL (1.6-2.3); Potassium 4.3 mmol/L (3.4-5.1); Sodium 137 mmol/L (137-145)
[2020-07-17 18:50] LABS: Prolactin 19.5 ng/mL (3.7-17.9)
--- NOTE | 2020-07-17 18:50 | DI.RAD.S_ITS ---
PROCEDURE: XR CHEST 1V INDICATIONS: near syncope TECHNIQUE: One view of the chest was acquired. COMPARISON: [facility], CR, XR CHEST 2V, 09/20/2017, 15:24. FINDINGS: Surgical changes and devices: None. Scattered subsegmental atelectasis and/or scarring. No focal consolidation. No pleural effusions or pneumothorax. High-density 1 mm calcified granuloma projecting in the right upper lobe appears present on the prior study. Mediastinum: Mediastinal contours appear normal. Heart size is normal. Bones and chest wall: Chronic multiple right rib fractures as before IMPRESSION: Scattered subsegmental atelectasis and/or scarring. No focal consolidation. Dictated by: Jason Rosales M.D. on 07/17/2020 at 20:06 Approved by: Jason Rosales M.D. on 07/17/2020 at 20:07
[2020-07-17 19:02] LABS: Creatine Kinase 128 U/L (55-170)
[2020-07-17 19:17] LABS: CKMB % Relative Index 3.6 % (1.5-5.0)
[2020-07-17 19:29] LABS: INR 1.1 (0.9-1.3); Prothrombin Time 12.5 SECONDS (10.1-12.7)
[2020-07-17 19:32] LABS: D Dimer 914 ng/mL (<230); PTT Partial Thromboplastin Tim 31 SECONDS (26.4-36.2)
[2020-07-17 19:40] LABS: Appearance Urine UA CLEAR; Bilirubin Urine UA NEGATIVE (NEGATIVE); Color Urine UA YELLOW; Glucose Urine UA NEGATIVE (Negative); Ketones Urine UA NEGATIVE (NEGATIVE); Leukocyte Esterase Urine UA NEGATIVE (NEGATIVE); Nitrite Urine UA NEGATIVE (Negative); Occult Blood Urine UA 2+ (Negative); Protein Urine UA 2+ (Negative); Specific Gravity Urine UA 1.025 (1.000-1.035); Urobilinogen Urine UA 0.2 E.U./dL (0.2)
[2020-07-17 19:41] LABS: Bacteria Urine None Seen
--- NOTE | 2020-07-17 19:49 | DI.CT.S_ITS ---
PROCEDURE: CT ANGIO CHEST PE PROTOCOL INDICATIONS: sudden event, near syncope, critical D dimer, troponin TECHNIQUE: After the administration of intravenous contrast, 2 mm thick sections acquired from the pulmonary apices to the posterior costophrenic angles. 3-dimensional maximum intensity projection (MIP) coronal and sagittal reformats were then acquired through the thorax. For radiation dose reduction, the following was used: automated exposure control, adjustment of mA and/or kV according to patient size. COMPARISON: None. FINDINGS: Image quality: Excellent. Pulmonary arteries: Pulmonary arteries are normal in size, and demonstrate no intraluminal filling defects to suggest central pulmonary embolism. Lungs and pleura: There are patchy opacities, and smooth interlobular septal thickening.. No pleural effusions or pneumothorax. Central and peripheral airways are patent. Mediastinum: Heart size is mildly enlarged, without pericardial effusion. Coronary artery calcifications are present. There is reflex of contrast into the hepatic veins suggestive of decreased cardiac output. No pathologically enlarged mediastinal lymphadenopathy although calcified lymph nodes are present. Thoracic aorta is normal in caliber and enhancement. Esophagus is normal in caliber, without hiatal hernia. Bones and chest wall: No suspicious bony lesions. Ribs and thoracic spine appear intact throughout. Thyroid is grossly unremarkable No axillary or supraclavicular adenopathy. Abdomen: Visualized upper abdominal solid organs appear normal in the early arterial phase of enhancement. IMPRESSION: No evidence of pulmonary embolism. No aortic dissection identified. No acute consolidation. Scattered subsegmental atelectasis and/or scarring. No focal consolidation. Diffuse interlobular septal line thickening and patchy ground-glass opacities raising possibility of early pulmonary edema. Multiple 3-4 mm pulmonary nodules as detailed on the montage image. Recommend further evaluation with follow-up in 1 year to exclude early metastatic or malignant possibilities Dictated by: Jason Rosales M.D. on 07/17/2020 at 20:22 Approved by: Jason Rosales M.D. on 07/17/2020 at 20:28
[2020-07-17 19:50] LABS: UR Morphine/Opiate cutoff 300 Negative (Negative); Ur Creatinine Normal (Normal); Ur Specific Gravity Normal (Normal); Urine Amphetamines Negative (Negative); Urine Barbiturates Negative (Negative); Urine Benzodiazepines Negative (Negative); Urine Cocaine Negative (Negative); Urine MDMA Negative (Negative); Urine Methadone Negative (Negative); Urine Methamphetamines Negative (Negative); Urine Oxycodone Negative (Negative); Urine Phencyclidine Negative (Negative); Urine Tetrahydrocannabinol Negative (Negative); Urine Tricyclic Antidepressant Negative (Negative); Urine pH Normal (Normal)
[2020-07-17 19:51] LABS: Amorphous Sediment Urine 1+; Culture Indicated Urine Cult Not Indicated; RBC Urine 1-5/HPF (0-5/HPF); WBC Urine 0-1/HPF (0-5/HPF)
[2020-07-17] MEDS: ASPIRIN 81 MG CHEW TAB 324 MG PO (20:15)
[2020-07-17] MEDS: METOPROLOL TARTRATE 5 MG/5 ML INJ IV (20:17)
[2020-07-17 20:19] LABS: COVID19 - ADMIT (NP swab/PCR) Negative (Negative)
[2020-07-17] MEDS: HEPARIN DRIP 25,000 UNIT/500 ML IV.SOLN 19.922 UNIT IV (20:21)
[2020-07-17] MEDS: HEPARIN 5,000 UNIT/ML VIAL 5000 UNIT IV (20:29)
[2020-07-17] MEDS: NITROGLYCERIN 0.4 MG SL TAB SL (20:43)
--- NOTE | 2020-07-17 20:50 | PC.NURSE ---
Pt endorses adequate 0/10 pain relief in chest after 1 dose of SL Nitro.
[2020-07-18 00:35] VITALS: BP 154/76; PULSE 60; RESP 18; TEMP 37; O2SAT 96
--- NOTE | 2020-08-09 22:56 | PC.NURSE ---
Late entry: Heparin drip infusing when patient was transferred to outside hospital; drip was transferred with patient. 79.6mls infused total prior to transfer at 0035.
== END 2020-07-18 00:35 | disposition short-term general hospital (02) ==
PROVIDERS: Emergency Medicine; Emergency Provider Emergency Medicine; PCP Family Medicine
DX: I21.4 Non-ST elevation (NSTEMI) myocardial infarction (principal)
CPT/HCPCS: 36415; 70450; 71045; 71275; 80048; 80305; 81003; 81015; 82550; 82553; 83735; 84146; 84484; 85025; 85379; 85610; 85730; 87635; 93005; 96365; 96366; 96375; 99285; 99291; 99292; J1644; Q9967

== ENCOUNTER → 2020-10-03 08:47 | Outpatient (CLI) | payer MEDICARE, OTHER, SELFPAY ==
[2020-10-03 10:45] LABS: Alanine Aminotransferase 22 IU/L (<50); Albumin 3.8 g/dL (3.5-5.0); Albumin Globulin Ratio 1.4 (1.0-2.8); Alkaline Phosphatase 82 U/L (38-126); Aspartate Aminotransferase 31 IU/L (17-59); BUN Creatinine Ratio 25.3 (6-22); Blood Urea Nitrogen 21 mg/dL (9-20); Calcium 9.4 mg/dL (8.4-10.2); Carbon Dioxide 28 mmol/L (22-32); Chloride 103 mmol/L (98-107); Cholesterol 139 mg/dL (140-199); Estimated Glomerular Filt Rate > 60.0 mL/min (>60); Globulin 2.8 g/dL (1.7-4.1); Glucose 105 mg/dL (80-110); HDL Cholesterol 48 mg/dL (40-60); HEMOLYSIS < 15 (0-50); LDL Cholesterol Calculated 79 mg/dL (<100); Potassium 4.4 mmol/L (3.4-5.1); Sodium 138 mmol/L (137-145); Total Protein 6.6 g/dL (6.3-8.2); Triglycerides 60 mg/dL (35-150)
[2020-10-03 11:12] LABS: TSH w/ Reflex to FT4 1.86 uIU/mL (0.47-4.68)
[2020-10-03 11:14] LABS: Prostate Specific Antigen Scrn 1.93 ng/mL (0.1-4.0)
== END ==
PROVIDERS: PCP Family Medicine; Referring Provider Family Medicine; Visit Provider Family Medicine
DX: E03.9 Hypothyroidism, unspecified (principal); Z12.5 Encounter for screening for malignant neoplasm of prostate; E78.00 Pure hypercholesterolemia, unspecified; I72.3 Aneurysm of iliac artery
CPT/HCPCS: 36415; 80053; 80061; 84439; 84443; G0103

== ENCOUNTER → 2020-10-14 10:35 | Outpatient (CLI) | payer MEDICARE, OTHER, SELFPAY ==
--- NOTE | 2020-10-14 10:36 | DI.CT.S_ITS ---
PROCEDURE: CT CHEST WO CON INDICATIONS: Multiple lung nodules TECHNIQUE: Noncontrast 2.0-2.5 mm thick sections acquired from the pulmonary apices to the posterior costophrenic angles. 7 mm thick axial MIP and 5 mm coronal and sagittal reformats were then acquired. A low radiation dose technique was utilized. COMPARISON: [facility], CT, CT ANGIO CHEST PE PROTOCOL, 07/17/2020, 19:51. FINDINGS: Image quality: Diagnostic, given the low radiation dose technique. Lungs and pleura: There is interval development of masslike consolidation involving lateral aspect of right upper lobe adjacent to the minor fissure and measures up to 2.1 x 2.2 x 1.9 cm in size series 3, image 160 and series 5, image 32. There is mildly spiculated margin associated with this lesion. 7 x 5 millimeters solid nodule is noted in medial aspect of left upper lobe near apex series 3, image 70, new since previous study. 6 mm solid nodule is seen in posterior aspect of right upper lobe series 3, image 66. This is also new since previous study. 3 millimeters solid nodule in lateral aspect of right upper lobe unchanged from prior study series 3, image 76. 2-3 mm solid nodule or seen scattered in posterior lateral aspect of right upper lobe adjacent to the above-mentioned large right upper lobe mass series 3 images 129, 135, and 149. Scattered scarring/atelectasis in periphery of bilateral lung felix are seen. No discrete pulmonary nodule is seen in bilateral lower lobes or right middle lobe. No pleural effusion or pneumothorax. Central and peripheral airway is patent. Mediastinum: Heart size is normal. No pericardial effusion. No mediastinal adenopathy by size criteria. Calcified lymph node is noted in right paratracheal space measures 5 millimeter in size. Calcified subcarinal lymph node is also noted. Thoracic aorta and central pulmonary arteries are normal in size. Moderate atherosclerotic calcifications in coronary vessels and thoracic aorta is seen. Esophagus is normal in caliber. No hiatal hernia. Bones and chest wall: No suspicious bony lesions. No vertebral body compression fractures. No axillary or supraclavicular adenopathy by size criteria. Thyroid gland is within normal limits. Abdomen: Visualized upper abdomen solid organs and bowel loops appear normal in the absence of contrast. IMPRESSION: 1. Interval development of spiculated masslike consolidation involving posterior lateral right upper lobe extending to minor fissure and measures 2.1 x 2.2 x 1.9 cm in size concerning for malignant process. Consider biopsy of this area for more definitive diagnosis. 2. Additional sub centimeter solid nodule seen in bilateral upper lobes. At least 2 of the nodules are new since previous study and are concerning for metastatic lung nodules. 3. No gross mediastinal or hilar lymphadenopathy by size criteria. Fleischner Society criteria for SOLID lung nodule followup. Nodule size (mm)Low-risk patientHigh-risk patient<6 (single or multiple)No routine followup.Optional CT at 12 months. 6-8 (single or multiple)CT at 6-12 months, then optional CT at 18-24 mo.CT at 6-12 months, then CT at 18-24 months. >8 (single)CT at 3 months, PET-CT, or biopsy. Same as for low-risk pts. >8 (multiple)CT at 3-6 months, then optional CT at 18-24 mo.CT at 3-6 months, then CT at 18-24 months. Fleischner Society criteria for SUB-SOLID lung nodule followup. Solitary pure ground-glass nodules<6 mm (ground glass or part solid)No followup needed. 6 mm or larger (ground glass)CT at 6-12 months to confirm persistence, then CT every 2 years until 5 years.6 mm or larger (part solid)CT at 3-6 months to confirm persistence, then annual CT until 5 years if unchanged and solid component remains <6 mm. Multiple sub-solid nodules<6 mmCT at 3-6 months, then CT consider at 2 & 4 years for high risk patients. [address] at 3-6 months. Subsequent management based on most suspicious lesions. Recommendations do not apply to lung cancer screening, patients with immunosuppression, or patients with known primary cancer. Dictated by: Conner Padron M.D. on 10/14/2020 at 11:30 Approved by: Conner Padron M.D. on 10/14/2020 at 12:11
== END ==
PROVIDERS: PCP Family Medicine; Referring Provider Family Medicine; Visit Provider Family Medicine
DX: R91.8 Other nonspecific abnormal finding of lung field (principal)
CPT/HCPCS: 71250

== ENCOUNTER → 2020-10-20 11:25 | Outpatient (CLI) | payer MEDICARE, OTHER, SELFPAY ==
[2020-10-20 11:39] LABS: Hematocrit 37.1 % (41-53); Hemoglobin 12.6 g/dL (13.5-17.5); Platelet Count 279 X10^3/uL (150-400)
[2020-10-20 11:48] LABS: INR 1.5 (0.9-1.3)
[2020-10-20 11:50] LABS: PTT Partial Thromboplastin Tim 39 SECONDS (26.4-36.2)
== END ==
PROVIDERS: PCP Family Medicine; Referring Provider Student in an Organized Health Care Education/Training Program; Visit Provider Student in an Organized Health Care Education/Training Program
DX: Z01.812 Encounter for preprocedural laboratory examination (principal); I10 Essential (primary) hypertension; I11.0 Hypertensive heart disease with heart failure; R91.8 Other nonspecific abnormal finding of lung field
CPT/HCPCS: 36415; 85014; 85018; 85049; 85610; 85730

== ENCOUNTER → 2020-10-22 11:04 | Outpatient (CLI) | payer MEDICARE, OTHER, SELFPAY ==
[2020-10-22 12:23] LABS: COVID19 -Nasal RAPID Negative (Negative)
== END ==
PROVIDERS: PCP Family Medicine; Visit Provider Physician Assistant
DX: Z20.822 Contact with and (suspected) exposure to COVID-19 (principal)
CPT/HCPCS: 87635; C9803

== ENCOUNTER → 2020-11-02 08:05 | Outpatient (CLI) | payer MEDICARE, OTHER, SELFPAY ==
[2020-11-02 11:39] LABS: COVID19 -Nasal RAPID Negative (Negative)
== END ==
PROVIDERS: PCP Family Medicine; Visit Provider Physician Assistant
DX: Z01.812 Encounter for preprocedural laboratory examination (principal); Z20.822 Contact with and (suspected) exposure to COVID-19
CPT/HCPCS: 87635; C9803

== ENCOUNTER 2020-11-03 09:08 | Outpatient (CLI) | payer MEDICARE, OTHER, SELFPAY ==
--- NOTE | 2020-11-03 09:10 | DI.CT.S_ITS ---
PROCEDURE: CT CHEST WO CON INDICATIONS: Right posterior lateral upper lobe spiculated nodule TECHNIQUE: Noncontrast 5 mm thick sections acquired including the area of interest where a mass was seen on the comparison CT. COMPARISON: [facility], CT, CT ANGIO CHEST PE PROTOCOL, 07/17/2020, 19:51. [facility], CT, CT CHEST WO CON, 10/14/2020, 10:52. FINDINGS: Image quality: Excellent. The patient was here for a planned CT-guided lung biopsy. There was a 2.1 x 2.4 cm mass in the right upper lobe abutting the minor fissure and major fissure, seen on the comparison CT dated 10/14/2020. The mass has shown interval decrease in size since the last exam, now measuring 1.5 x 1.9 cm. Planned lung biopsies canceled. IMPRESSION: 1. The patient was here for a scheduled CT-guided lung biopsy. There was a 2.1 x 2.4 cm mass in the right upper lobe seen on the comparison CT dated 10/14/2020. The mass demonstrates interval decrease in size, now measuring 1.5 x 1.9 cm. The finding suggests a benign lesion such as focal pneumonia. Given the interval change, the scattered biopsy was canceled. A short-term follow-up CT is recommended in 4 weeks. If the mass persists in 4 weeks, a PET-CT may be obtained for further evaluation. Dictated by: Javon San M.D. on 11/03/2020 at 11:14 Approved by: Javon San M.D. on 11/03/2020 at 11:22
[2020-11-03 09:43] VITALS: BP 154/74; PULSE 52; RESP 14; TEMP 36.3; O2SAT 98; BMI 24.5
[2020-11-03 09:51] LABS: Hematocrit 36.9 % (41-53); Hemoglobin 12.6 g/dL (13.5-17.5)
[2020-11-03 09:53] LABS: INR 1.1 (0.9-1.3); Prothrombin Time 12.4 SECONDS (10.1-12.7)
[2020-11-03 10:50] VITALS: BP 144/75; PULSE 52; RESP 13; TEMP 36.4; O2SAT 98
--- NOTE | 2020-11-03 10:55 | SUR.PHASEII ---
Pt returned to phase 11 after it was determined that no bx was needed. Plan is to do a repeat xray or a possible Pet scan in a month. Pts VS were taken and he was escorted in WC to ED entrance.
== END 2020-11-03 10:54 | disposition home or self-care (01) ==
LOC: OR 09:10
PROVIDERS: PCP Family Medicine; Referring Provider Family Medicine; Visit Provider Family Medicine
PROC: BB24ZZZ Computerized Tomography (CT Scan) of Bilateral Lungs (ICD-10-PCS; CPT 32408; principal; 2020-11-03 10:00)
DX: R91.1 Solitary pulmonary nodule (principal)
CPT/HCPCS: 36415; 71250; 85014; 85018; 85610

== ENCOUNTER → 2020-12-01 09:37 | Outpatient (CLI) | payer MEDICARE, OTHER, SELFPAY ==
--- NOTE | 2020-12-01 09:38 | DI.CT.S_ITS ---
PROCEDURE: CT CHEST WO CON INDICATIONS: Right posterior lateral upper lobe spiculated nodule TECHNIQUE: Noncontrast 5 mm thick sections acquired from the pulmonary apices to the posterior costophrenic angles. 1 mm lung window, 5 mm thick coronal and sagittal and 7 mm axial MIP reformats were then acquired. For radiation dose reduction, the following was used: automated exposure control, adjustment of mA and/or kV according to patient size. COMPARISON: [facility], CT, CT CHEST WO CON, 11/03/2020, 10:17. [facility], CT, CT CHEST WO CON, 10/14/2020, 10:52. FINDINGS: Image quality: Excellent. Lungs and pleura: Significant further interval improvement in what was previously a ill-defined spiculated mass in the posterior lateral aspect of the right upper lobe, which initially measured 2.1 x 2.2 x 1.9 cm. There is minimal residual inflammatory change in this location, consistent with resolving infection versus inflammation. Near complete resolution of a 0.7 x 0.5 cm ill-defined nodular density in the left upper lobe. This is also consistent resolution infection or inflammation. A 3 mm right upper lobe pulmonary nodule is stable, reference image 61/3 of the current study. No new or increasing pulmonary nodules. Interval development of an ill-defined reticulonodular process in the right middle lobe, consistent with infection or inflammation. Reference image 245/3. And No pleural effusions or pneumothorax. Central and peripheral airways are patent and normal in caliber. Mediastinum: Heart size is normal. No pericardial effusion. Severe dense coronary artery calcifications. No mediastinal adenopathy by size criteria. Multiple small calcified mediastinal lymph nodes consistent with chronic granulomatous disease. Thoracic aorta and central pulmonary arteries are normal in size. Esophagus is normal in caliber. No hiatal hernia. Bones and chest wall: No suspicious bony lesions. No vertebral body compression fractures. No axillary or supraclavicular adenopathy by size criteria. Thyroid gland is unremarkable as visualized . Abdomen: Visualized upper abdominal solid organs and bowel loops appear normal in the absence of contrast. IMPRESSION: 1. Near complete resolution of previous spiculated mass in the posterior lateral aspect of the right upper lobe consistent with near complete resolution of inflammation or infection. 2. Near complete resolution of a 0.7 cm maximum diameter left upper lobe nodule, consistent with resolution of inflammation or infection. 3. A indeterminate 3 mm right upper lobe pulmonary nodule is stable. 4. Chronic granulomatous disease. 5. Interval development of an inflammatory or atypical infectious process in the right middle lobe. 6. Severe coronary artery calcifications. Dictated by: Perry Cruz M.D. on 12/01/2020 at 12:57 Approved by: Perry Cruz M.D. on 12/01/2020 at 14:15
== END ==
PROVIDERS: PCP Family Medicine; Referring Provider Family Medicine; Visit Provider Family Medicine
DX: R91.8 Other nonspecific abnormal finding of lung field (principal); I25.10 Atherosclerotic heart disease of native coronary artery without angina pectoris; D71 Functional disorders of polymorphonuclear neutrophils
CPT/HCPCS: 71250; Q9967

== ENCOUNTER → 2021-04-04 06:56 | Outpatient (CLI) | payer MEDICARE, OTHER, SELFPAY ==
[2021-04-04 09:16] LABS: Add Manual Diff / Slide Review NO; Basophils Absolute Auto 0 /uL (0-100); Basophils Percent Auto 0.3 % (0-2); Eosinophils Absolute Auto 300 /uL (0-450); Eosinophils Percent Auto 9.4 % (2-4); Hematocrit 38.6 % (41-53); Hemoglobin 13.1 g/dL (13.5-17.5); Lymphocytes Absolute Auto 500 /uL (1100-4500); Lymphocytes Percent Auto 16.1 % (25-40); Mean Corpuscular Hemoglobin 31.6 PG (26-34); Mean Corpuscular Volume 92.9 fL (80-100); Monocytes Absolute Auto 400 /uL (0-900); Monocytes Percent Auto 12.4 % (3-14); Neutrophils Absolute Auto 2100 /uL (1500-7000); Neutrophils Percent Auto 61.8 % (50-75); Platelet Count 260 X10^3/uL (150-400); Red Blood Cell Count 4.16 X10^6/uL (4.5-5.9); Red Cell Distribution Width 13.4 % (11.6-14.8); White Blood Cell Count 3.4 X10^3/uL (4.5-11.0)
[2021-04-04 09:40] LABS: INR 1.2 (0.9-1.3); Prothrombin Time 13.3 SECONDS (10.1-12.7)
== END ==
PROVIDERS: PCP Family Medicine; Referring Provider Family Medicine; Visit Provider Family Medicine
DX: R91.8 Other nonspecific abnormal finding of lung field (principal)
CPT/HCPCS: 36415; 85025; 85610

== ENCOUNTER → 2021-04-10 10:33 | Outpatient (CLI) | payer MEDICARE, OTHER, SELFPAY ==
--- NOTE | 2021-04-10 10:34 | DI.CT.S_ITS ---
PROCEDURE: CT CHEST WO CON INDICATIONS: follow up lung abnormalities TECHNIQUE: Noncontrast 5 mm thick sections acquired from the pulmonary apices to the posterior costophrenic angles. 1 mm lung window, 5 mm thick coronal and sagittal and 7 mm axial MIP reformats were then acquired. For radiation dose reduction, the following was used: automated exposure control, adjustment of mA and/or kV according to patient size. COMPARISON: [facility], CT, CT CHEST WO CON, 10/14/2020, 10:52. [facility], CT, CT ANGIO CHEST PE PROTOCOL, 07/17/2020, 19:51. [facility], CT, CT CHEST WO CON, 12/01/2020, 9:44. FINDINGS: Image quality: Excellent. Lungs and pleura: Overall there is minimal change. There is mild ground-glass opacity in the right upper lobe juxta minor fissure which is increased. Right upper lobe inferior medial opacity is nearly resolved. Mild opacity in the right middle lobe. A few small pulmonary nodules or nodular opacities measuring 0.4 cm or less. Many of these are decreased compared to 10/14/2020. No new nodules identified. No pleural effusions or pneumothorax. Central and peripheral airways are patent and normal in caliber. Mediastinum: Heart size is normal. Coronary artery calcifications. No pericardial effusion. No mediastinal adenopathy by size criteria. Small calcified mediastinal hilar nodes. Thoracic aorta and central pulmonary arteries are normal in size. Esophagus is normal in caliber. No hiatal hernia. Bones and chest wall: No suspicious bony lesions. No vertebral body compression fractures. No axillary or supraclavicular adenopathy by size criteria. Thyroid gland is unremarkable. Abdomen: Visualized upper abdominal solid organs and bowel loops appear normal in the absence of contrast. IMPRESSION: 1. There is minimal interval change. Small area of increased opacity in the inferior right upper lobe with this other areas again decreasing. 2. A few small nodules or nodular opacities are stable to decreased. 3. Calcified mediastinal and hilar lymph nodes. 4. Severe coronary artery calcifications. Dictated by: Juventino Major M.D. on 04/10/2021 at 11:26 Approved by: Juventino Major M.D. on 04/10/2021 at 11:40
== END ==
PROVIDERS: PCP Family Medicine; Referring Provider Family Medicine; Visit Provider Family Medicine
DX: R91.8 Other nonspecific abnormal finding of lung field (principal); I25.10 Atherosclerotic heart disease of native coronary artery without angina pectoris; I89.8 Other specified noninfective disorders of lymphatic vessels and lymph nodes; I10 Essential (primary) hypertension; E03.9 Hypothyroidism, unspecified
CPT/HCPCS: 71250

== ENCOUNTER → 2021-07-24 06:59 | Outpatient (CLI) | payer MEDICARE, OTHER, SELFPAY ==
[2021-07-24 07:37] LABS: Add Manual Diff / Slide Review NO; Basophils Absolute Auto 0 /uL (0-100); Basophils Percent Auto 0.1 % (0-2); Eosinophils Absolute Auto 300 /uL (0-450); Eosinophils Percent Auto 6.9 % (2-4); Hematocrit 39.6 % (41-53); Hemoglobin 13.6 g/dL (13.5-17.5); Lymphocytes Absolute Auto 700 /uL (1100-4500); Lymphocytes Percent Auto 14.6 % (25-40); Mean Corpuscular HGB Conc 34.2 % (30-36); Mean Corpuscular Hemoglobin 31.3 PG (26-34); Mean Corpuscular Volume 91.7 fL (80-100); Monocytes Absolute Auto 500 /uL (0-900); Neutrophils Absolute Auto 3100 /uL (1500-7000); Neutrophils Percent Auto 67.4 % (50-75); Platelet Count 237 X10^3/uL (150-400); Red Blood Cell Count 4.32 X10^6/uL (4.5-5.9); Red Cell Distribution Width 13.4 % (11.6-14.8); White Blood Cell Count 4.5 X10^3/uL (4.5-11.0)
[2021-07-24 08:41] LABS: Alanine Aminotransferase 24 IU/L (<50); Albumin 3.9 g/dL (3.5-5.0); Albumin Globulin Ratio 1.4 (1.0-2.8); Alkaline Phosphatase 75 U/L (38-126); Aspartate Aminotransferase 33 IU/L (17-59); BUN Creatinine Ratio 18.3 (6-22); Bilirubin Total 0.9 mg/dL (0.2-1.3); Blood Urea Nitrogen 17 mg/dL (9-20); Calcium 8.9 mg/dL (8.4-10.2); Carbon Dioxide 28 mmol/L (22-32); Chloride 105 mmol/L (98-107); Cholesterol 148 mg/dL (140-199); Estimated Glomerular Filt Rate > 60.0 mL/min (>60); Globulin 2.7 g/dL (1.7-4.1); Glucose 100 mg/dL (80-110); HDL Cholesterol 52 mg/dL (40-60); HEMOLYSIS < 15 (0-50); LDL Cholesterol Calculated 84 mg/dL (<100); Potassium 4.2 mmol/L (3.4-5.1); Sodium 139 mmol/L (137-145); Total Protein 6.6 g/dL (6.3-8.2); Triglycerides 62 mg/dL (35-150)
[2021-07-24 08:55] LABS: Free T4, Direct Thyroxine 1.38 ng/dL (0.78-2.19)
[2021-07-24 09:09] LABS: Thyroid Stimulating Hormone 3.04 uIU/mL (0.47-4.68)
[2021-07-24 09:10] LABS: Prostate Specific Antigen Scrn 1.96 ng/mL (0.1-4.0)
== END ==
PROVIDERS: PCP Family Medicine; Referring Provider Family Medicine; Visit Provider Family Medicine
DX: E03.9 Hypothyroidism, unspecified (principal); I10 Essential (primary) hypertension; Z12.5 Encounter for screening for malignant neoplasm of prostate; E78.00 Pure hypercholesterolemia, unspecified; R91.8 Other nonspecific abnormal finding of lung field
CPT/HCPCS: 36415; 80053; 80061; 84439; 84443; 85025; G0103

== ENCOUNTER → 2021-09-28 18:53 | Outpatient (CLI) | payer MEDICARE, OTHER, SELFPAY ==
--- NOTE | 2021-09-28 18:58 | DI.RAD.S_ITS ---
PROCEDURE: XR LUMBAR SPINE 2-3V INDICATIONS: low back pain, spasm, hx of injury TECHNIQUE: Three views of the lumbar spine were acquired. COMPARISON: None. FINDINGS: Bones: Five [id number] vertebrae are present. Straightening of the normal lumbar lordosis. Trace retrolisthesis L2 on three, L4 on five, and L5 on S1. Multilevel disc height loss and prominent mainly lateral endplate spurring from L3 through S1. No vertebral body compression fractures. No suspicious bony lesions. Soft tissues: Overlying bowel gas pattern is normal. Increased quantity of solid stool. No suspicious soft tissue calcifications. IMPRESSION: 1. Multilevel spondylosis and reactive endplate hypertrophic spurring. Dictated by: Liana Mcallister M.D. on 09/28/2021 at 19:59 Approved by: Liana Mcallister M.D. on 09/28/2021 at 20:00
== END ==
PROVIDERS: PCP Family Medicine; Referring Provider Physician Assistant; Visit Provider Physician Assistant
DX: M47.816 Spondylosis without myelopathy or radiculopathy, lumbar region (principal); M47.817 Spondylosis without myelopathy or radiculopathy, lumbosacral region; M54.50 Low back pain, unspecified
CPT/HCPCS: 72100

== ENCOUNTER → 2022-01-11 08:57 | Outpatient (CLI) | payer MEDICARE, OTHER, SELFPAY ==
[2022-01-11 10:46] LABS: Alanine Aminotransferase 21 IU/L (<50); Albumin 3.9 g/dL (3.5-5.0); Albumin Globulin Ratio 1.3 (1.0-2.8); Alkaline Phosphatase 72 U/L (38-126); Aspartate Aminotransferase 29 IU/L (17-59); BUN Creatinine Ratio 28.4 (6-22); Bilirubin Total 0.8 mg/dL (0.2-1.3); Blood Urea Nitrogen 27 mg/dL (9-20); Calcium 8.9 mg/dL (8.4-10.2); Carbon Dioxide 29 mmol/L (22-32); Chloride 104 mmol/L (98-107); Estimated Glomerular Filt Rate > 60 mL/min (>60); Globulin 2.9 g/dL (1.7-4.1); Glucose 107 mg/dL (80-110); HEMOLYSIS < 15 (0-50); Potassium 3.9 mmol/L (3.4-5.1); Sodium 140 mmol/L (137-145); Total Protein 6.8 g/dL (6.3-8.2)
[2022-01-11 10:59] LABS: Free T4, Direct Thyroxine 1.23 ng/dL (0.78-2.19)
[2022-01-11 11:13] LABS: Thyroid Stimulating Hormone 1.76 uIU/mL (0.47-4.68)
== END ==
PROVIDERS: PCP Family Medicine; Referring Provider Family Medicine; Visit Provider Family Medicine
DX: E03.9 Hypothyroidism, unspecified (principal); I10 Essential (primary) hypertension; N40.1 Benign prostatic hyperplasia with lower urinary tract symptoms
CPT/HCPCS: 80053; 84439; 84443

== ENCOUNTER → 2022-04-12 10:01 | Outpatient (CLI) | payer MEDICARE, OTHER, SELFPAY ==
--- NOTE | 2022-04-12 10:02 | DI.CT.S_ITS ---
PROCEDURE: CT CHEST WO CON INDICATIONS: Follow-up lung mass TECHNIQUE: Noncontrast 5 mm thick sections acquired from the pulmonary apices to the posterior costophrenic angles. 1 mm lung window, 5 mm thick coronal and sagittal and 7 mm axial MIP reformats were then acquired. For radiation dose reduction, the following was used: automated exposure control, adjustment of mA and/or kV according to patient size. COMPARISON: [facility], CT, CT CHEST WO CON, 12/01/2020, 9:44. [facility], CT, CT CHEST WO CON, 11/03/2020, 10:17. [facility], CT, CT CHEST WO CON, 10/14/2020, 10:52. [facility], CT, CT CHEST WO CON, 04/10/2021, 10:48. FINDINGS: Image quality: Excellent. Lungs and pleura: There is a 0.8 x 1.0 cm irregular density in the lateral aspect of the right upper lobe (series 3, image 108; series 6, image 20), new. There is a 0.9 x 1.5 cm ground-glass nodule in the left upper lobe (series 3, image 98), also new. A 0.5 cm solid nodule is identified in the left upper lobe (series 3, image 156), new. A 0.5 cm solid nodule is identified in the left lower lobe (series 3 image 183), new. Multiple subpleural nodules are present in the right upper lobe, right middle lobe, superior segment of right lower lobe, and left upper lobe.. There is scars and atelectasis in right middle lobe. No acute air space opacities. No pleural effusions or pneumothorax. Central and peripheral airways are patent and normal in caliber. Mediastinum: Heart size is normal. There is severe atherosclerotic calcifications in coronary arteries. No pericardial effusion. No mediastinal adenopathy by size criteria. There are calcified granulomas in mediastinum and nakia bilaterally. Thoracic aorta and central pulmonary arteries are normal in size. Esophagus is normal in caliber. No hiatal hernia. Bones and chest wall: No suspicious bony lesions. No vertebral body compression fractures. No axillary or supraclavicular adenopathy by size criteria. Thyroid gland is unremarkable. Abdomen: Visualized upper abdominal solid organs and bowel loops appear normal in the absence of contrast. IMPRESSION: 1. Multiple nodules and nodular densities are present bilaterally. Several lesions are new since the last exam. The nodules are most likely inflammatory or infectious etiology based a short-term follow-up CT is recommended in 3 months. 2. Calcified granulomas in mediastinum and nakia bilaterally. 3. Severe coronary artery calcifications. Dictated by: Javon San M.D. on 04/12/2022 at 10:32 Approved by: Javon San M.D. on 04/12/2022 at 17:03
== END ==
PROVIDERS: PCP Family Medicine; Referring Provider Family Medicine; Visit Provider Family Medicine
DX: J98.4 Other disorders of lung (principal); R91.8 Other nonspecific abnormal finding of lung field; I25.10 Atherosclerotic heart disease of native coronary artery without angina pectoris; I10 Essential (primary) hypertension; E03.9 Hypothyroidism, unspecified; N40.1 Benign prostatic hyperplasia with lower urinary tract symptoms; E78.00 Pure hypercholesterolemia, unspecified
CPT/HCPCS: 71250

== ENCOUNTER → 2022-05-03 10:52 | Outpatient (CLI) | payer MEDICARE, OTHER, SELFPAY ==
[2022-05-03 11:41] LABS: Add Manual Diff / Slide Review NO; Basophils Absolute Auto 0 /uL (0-100); Basophils Percent Auto 0.3 % (0-2); Eosinophils Absolute Auto 200 /uL (0-450); Eosinophils Percent Auto 5.8 % (2-4); Hematocrit 41.5 % (41-53); Hemoglobin 14.2 g/dL (13.5-17.5); Lymphocytes Absolute Auto 700 /uL (1100-4500); Mean Corpuscular HGB Conc 34.1 % (30-36); Mean Corpuscular Hemoglobin 31.4 PG (26-34); Monocytes Absolute Auto 600 /uL (0-900); Neutrophils Absolute Auto 2500 /uL (1500-7000); Neutrophils Percent Auto 61.9 % (50-75); Platelet Count 244 X10^3/uL (150-400); Red Blood Cell Count 4.52 X10^6/uL (4.5-5.9); Red Cell Distribution Width 13.4 % (11.6-14.8)
[2022-05-03 12:10] LABS: Alanine Aminotransferase 24 IU/L (<50); Albumin 4.3 g/dL (3.5-5.0); Albumin Globulin Ratio 1.4 (1.0-2.8); Alkaline Phosphatase 82 U/L (38-126); Aspartate Aminotransferase 35 IU/L (17-59); BUN Creatinine Ratio 27.6 (6-22); Bilirubin Total 0.7 mg/dL (0.2-1.3); Blood Urea Nitrogen 24 mg/dL (9-20); Calcium 8.9 mg/dL (8.4-10.2); Carbon Dioxide 28 mmol/L (22-32); Chloride 102 mmol/L (98-107); Cholesterol 141 mg/dL (140-199); Estimated Glomerular Filt Rate > 60 mL/min (>60); Glucose 94 mg/dL (80-110); HDL Cholesterol 48 mg/dL (40-60); HEMOLYSIS < 15 (0-50); LDL Cholesterol Calculated 82 mg/dL (<100); Potassium 4.6 mmol/L (3.4-5.1); Sodium 139 mmol/L (137-145); Total Protein 7.3 g/dL (6.3-8.2); Triglycerides 57 mg/dL (35-150)
[2022-05-03 12:40] LABS: TSH w/ Reflex to FT4 2.03 uIU/mL (0.47-4.68)
== END ==
PROVIDERS: PCP Family Medicine; Referring Provider Family Medicine; Visit Provider Family Medicine
DX: I10 Essential (primary) hypertension (principal); N40.1 Benign prostatic hyperplasia with lower urinary tract symptoms; E03.9 Hypothyroidism, unspecified; E78.00 Pure hypercholesterolemia, unspecified; R91.8 Other nonspecific abnormal finding of lung field; R00.1 Bradycardia, unspecified
CPT/HCPCS: 36415; 80053; 80061; 84153; 84443; 85025

== ENCOUNTER → 2022-07-13 09:50 | Outpatient (CLI) | payer MEDICARE, OTHER, SELFPAY ==
[2022-07-13 11:22] LABS: Add Manual Diff / Slide Review NO; Basophils Absolute Auto 0 /uL (0-100); Basophils Percent Auto 0.1 % (0-2); Eosinophils Absolute Auto 200 /uL (0-450); Eosinophils Percent Auto 4.9 % (2-4); Hematocrit 40.7 % (41-53); Hemoglobin 13.7 g/dL (13.5-17.5); Lymphocytes Absolute Auto 700 /uL (1100-4500); Lymphocytes Percent Auto 14.8 % (25-40); Mean Corpuscular HGB Conc 33.8 % (30-36); Mean Corpuscular Hemoglobin 31.4 PG (26-34); Mean Corpuscular Volume 92.9 fL (80-100); Monocytes Absolute Auto 600 /uL (0-900); Monocytes Percent Auto 11.2 % (3-14); Neutrophils Absolute Auto 3500 /uL (1500-7000); Platelet Count 254 X10^3/uL (150-400); Red Blood Cell Count 4.38 X10^6/uL (4.5-5.9); Red Cell Distribution Width 13.8 % (11.6-14.8)
[2022-07-13 11:59] LABS: BUN Creatinine Ratio 26.5 (6-22); Blood Urea Nitrogen 22 mg/dL (9-20); Calcium 8.6 mg/dL (8.4-10.2); Carbon Dioxide 31 mmol/L (22-32); Chloride 101 mmol/L (98-107); Estimated Glomerular Filt Rate > 60 mL/min (>60); Glucose 110 mg/dL (80-110); HEMOLYSIS < 15 (0-50); Potassium 4.2 mmol/L (3.4-5.1); Sodium 139 mmol/L (137-145)
== END ==
PROVIDERS: PCP Family Medicine; Referring Provider Internal Medicine Cardiovascular Disease; Visit Provider Internal Medicine Cardiovascular Disease
DX: I44.2 Atrioventricular block, complete (principal)
CPT/HCPCS: 36415; 80048; 85025

== ENCOUNTER → 2022-09-04 07:41 | Outpatient (CLI) | payer MEDICARE, OTHER, SELFPAY ==
--- NOTE | 2022-09-04 07:42 | DI.CT.S_ITS ---
PROCEDURE: CT CHEST WO CON INDICATIONS: f/u eval lung nodules TECHNIQUE: Noncontrast 5 mm thick sections acquired from the pulmonary apices to the posterior costophrenic angles. 1 mm lung window, 5 mm thick coronal and sagittal and 7 mm axial MIP reformats were then acquired. For radiation dose reduction, the following was used: automated exposure control, adjustment of mA and/or kV according to patient size. COMPARISON: [facility], CT, CT CHEST WO CON, 04/12/2022, 10:06. FINDINGS: Image quality: Excellent. Lungs and pleura: Again noted are tree-in-bud opacities present in the posterior segment right upper lobe as well as lateral superior right middle lobe consistent with an inflammatory or infectious process. There is some element of tree-in-bud opacity present in the left upper lobe, as well. However, there is interval increase in the size a nodular density in the left upper lobe. The nodular density previously measured approximately 0.5 cm on previous image 156/3. On current image 131/3 it measures 1.5 x 0.8 cm. Inflammatory nodularity has also developed in the anterior medial aspect of the right middle lobe, measuring approximately 1.1 x 2.0 cm. This area is consistent with inflammation or infection, and not malignancy. Additionally, tree-in-bud opacity has developed in the anterior inferior right middle lobe. Reference image 233/3 is well as 250/3. No pleural effusions or pneumothorax. Central and peripheral airways are patent and normal in caliber. Mediastinum: Heart size is normal. No pericardial effusion. Extensive coronary artery calcifications. Pacemaker. No mediastinal adenopathy by size criteria. Calcified mediastinal lymph nodes suggest chronic granulomatous disease. Thoracic aorta and central pulmonary arteries are normal in size. Esophagus is normal in caliber. No hiatal hernia. Bones and chest wall: No suspicious bony lesions. No vertebral body compression fractures. No axillary or supraclavicular adenopathy by size criteria. Thyroid gland is unremarkable . Abdomen: Visualized upper abdominal solid organs and bowel loops appear normal in the absence of contrast. IMPRESSION: 1. There are multiple areas in the lungs which have the appearance of inflammation or infectious changes with multifocal tree-in-bud opacities noted. 2. The a nodular density in the left upper lobe has increased in size, measuring 1.5 x 0.8 cm. 3. Extensive coronary artery calcifications. Comment: Recommend follow-up CT in 3 months to re-evaluate the 0.8 x 1.5 cm left upper lobe nodular opacity. Dictated by: Perry Cruz M.D. on 09/04/2022 at 15:14 Approved by: Perry Cruz M.D. on 09/04/2022 at 15:26
== END ==
PROVIDERS: PCP Family Medicine; Referring Provider Family Medicine; Visit Provider Family Medicine
DX: R91.8 Other nonspecific abnormal finding of lung field (principal); I25.10 Atherosclerotic heart disease of native coronary artery without angina pectoris
CPT/HCPCS: 71250

== ENCOUNTER → 2022-11-26 08:31 | Outpatient (CLI) | payer MEDICARE, OTHER, SELFPAY ==
[2022-11-26 09:48] LABS: Influenza A - CEPHEID Flu A NEGATIVE (NEGATIVE); Influenza B - CEPHEID Flu B NEGATIVE (NEGATIVE); Respiratory Syncytial Virus Negative (Negative)
[2022-11-26 09:49] LABS: COVID-19 CEPHEID 4-PLEX PCR Negative (Negative)
== END ==
PROVIDERS: PCP Family Medicine; Visit Provider Physician Assistant
DX: J06.9 Acute upper respiratory infection, unspecified (principal)
CPT/HCPCS: 0241U

== ENCOUNTER 2022-11-29 08:36 | Emergency (ER) | payer MEDICARE, OTHER, SELFPAY ==
[2022-11-29 08:41] VITALS: BP 150/67; PULSE 68; RESP 18; TEMP 36.6; O2SAT 98; BMI 24.4
[2022-11-29 08:42] VITALS: PULSE 76; O2SAT 98
--- NOTE | 2022-11-29 09:10 | DI.RAD.S_ITS ---
PROCEDURE: XR CHEST 2V INDICATIONS: fever, cough TECHNIQUE: 2 views of the chest were acquired. COMPARISON: [facility], CR, XR CHEST 1 VIEW, 07/18/2022, 10:35. [facility], CT, CT CHEST WO CON, 09/04/2022, 7:48. [facility], CR, XR CHEST 2 VIEWS, 07/18/2022, 13:35. [facility], CR, XR CHEST 1V, 07/17/2020, 19:49. FINDINGS: Surgical changes and devices: Left chest wall pacer is seen with intact leads. Lungs and pleura: Diffuse bilateral airspace opacities have consistent with pulmonary vascular congestion. A nodular density in the right lower lobe appears similar to a prior density on CT dated 09/04/2022. No pleural effusions or pneumothorax. Mediastinum: Mediastinal contours are normal. Heart size is normal. Bones and chest wall: No suspicious bony abnormalities. Soft tissues appear unremarkable. IMPRESSION: 1. Prominent bilateral perihilar airspace opacities are probably vasculature. 2. Nodular density in the right lower lobe adjacent to the diaphragm appear similar to a density on prior CT on 09/04/2022. This also could be a nipple shadow. Recommend follow-up imaging to resolution. Dictated by: Ayden Gonzalez M.D. on 11/29/2022 at 9:38 Approved by: Ayden Gonzalez M.D. on 11/29/2022 at 9:43
[2022-11-29 09:15] LABS: Appearance Urine UA CLEAR; Bilirubin Urine UA NEGATIVE (NEGATIVE); Color Urine UA YELLOW; Glucose Urine UA NEGATIVE (Negative); Ketones Urine UA NEGATIVE (NEGATIVE); Leukocyte Esterase Urine UA NEGATIVE (NEGATIVE); Nitrite Urine UA NEGATIVE (Negative); Occult Blood Urine UA NEGATIVE (Negative); Protein Urine UA 2+ (Negative); pH Urine UA 5.5 (4.5-8.0)
[2022-11-29 09:27] LABS: Bacteria Urine None Seen; Culture Indicated Urine Cult Not Indicated; RBC Urine None Seen (0-5/HPF); Squamous Epithelial Cell Urine 0-1 /HPF (0-5/HPF); WBC Urine 0-1/HPF (0-5/HPF)
--- NOTE | 2022-11-29 09:55 | ED.SOB ---
HPI - SOB/Dyspnea General Chief Complaint: Upper Respiratory Symptoms Stated Complaint: temp T-5/barking cough/chest congestion Time Seen by Provider: 11/29/22 08:42 Source: patient Mode of arrival: Ambulatory Limitations: no limitations History of Present Illness HPI Narrative: This is a 77-year-old male with history of hypertension, hypothyroidism, known lung nodule, coronary artery disease with prior cardiac stents, iliac artery aneurysm anticoagulated on aspirin and Eliquis daily. Patient presents complaint of 5 days of fever, he states now on nasal congestion, he states he is had no shortness of breath but some chest congestion, he denies any chest pain or pressure. He is had cough which has been nonproductive. Denies any nausea or vomiting. He denies any active diarrhea or constipation. No dysuria urgency or frequency. He has had myalgias and muscle aches and fevers up to 101.5 F. Patient states he has been having some improvement but with 5 days of fevers presents to the ED for evaluation. He was seen on Saturday 5 days ago at the urgent care for COVID swab which was negative and had 4 home test on Saturday which were negative as well. He is not had any more since then. He defers additional COVID testing today. Patient notes he is quite active and hikes regularly. He states he has not been hiking this week as he is felt ill but does not feel more short of breath. Remote history of tobacco, no alcohol or illicit regularly. Related Data Home Medications Medication Instructions Recorded Confirmed melatonin 5 mg tablet 5 mg PO DAILY 11/26/19 08/31/22 aspirin 81 mg tablet,delayed 81 mg PO DAILY 08/03/21 08/31/22 release (Adult Aspirin Regimen) Previous Rx's Medication Instructions Recorded atorvastatin 40 mg tablet 40 mg PO DAILY #90 tabs 03/07/22 levothyroxine 88 mcg tablet 88 mcg PO DAILY #90 tabs 03/07/22 lisinopril 20 mg tablet 20 mg PO DAILY #90 tabs 03/07/22 apixaban 5 mg tablet 5 mg PO BID #180 tabs 03/08/22 amlodipine 5 mg tablet 5 mg PO BEDTIME #90 tabs 05/03/22 tamsulosin 0.4 mg capsule 0.4 mg PO .B.i.d. #180 caps 06/19/22 fluticasone furoate 50 1 inh inhalation DAILY #30 ea 09/20/22 mcg/actuation blister powder for inhalation (Arnuity Ellipta) amoxicillin 875 mg-potassium 1 tab PO Q12H #14 tabs 11/29/22 clavulanate 125 mg tablet Allergies Allergy/AdvReac Type Severity Reaction Status Date / Time No Known Drug Allergies Allergy Verified 08/31/22 08:13 Review of Systems Review of Systems ROS Unobtainable: All systems reviewed & are unremarkable except as noted in HPI and below Patient History Medical History Actinic keratosis (Unknown) Basal cell carcinoma (~03/2015) Benign non-nodular prostatic hyperplasia with lower urinary tract symptoms (07/29/15) BPH (benign prostatic hyperplasia) (Unknown) BPH w urinary obs/LUTS Bradycardia COPD (chronic obstructive pulmonary disease) Dupuytren's contracture of both hands (09/27/16) Dupuytren's contracture of both hands (Unknown) Essential tremor (07/23/17) Family history of prostate cancer Hypertension Hypothyroidism (01/20/15) Hypothyroidism (Unknown) Iliac artery aneurysm, left Lung mass Male circumcision NSTEMI (non-ST elevated myocardial infarction) Pulmonary nodules/lesions, multiple Pure hypercholesterolemia (12/19/15) Rosacea (07/23/17) Rosacea (Unknown) Surgical History H/O hand surgery (~2001) H/O vasectomy History of coronary artery stent placement Family History Brother Age: 79 Prostate cancer FH: CVA (cerebrovascular accident) Gout Brother Age: 77 Type 2 diabetes mellitus without complication Father No problems noted. Mother No problems noted. Social History marital status: number of children: 2 household members: spouse Smoking Status: Former smoker alcohol intake: current Type(s) of exercise: regular exercise frequency: 3-4 times per week Smoking Status: Former smoker alcohol intake frequency: 0-2 drinks per day Substance Use Type: does not use Exam Narrative Exam Narrative: GEN: well nourished, well appearing male, alert and oriented x 3, patient appears to be in no acute distress. HEENT: Atraumatic, pupils are equal round reactive to light, extraocular movements are intact, nares are clear, there is no conjunctival pallor. Throat is clear without any exudates, erythema, tonsillar enlargement or uvular deviation HEART: Regular rate and rhythm without murmur, clicks, rubs. LUNGS:Lungs clear to auscultation, no wheezes, rales, crackles, chest moves symmetrically, no tachypnea or accessory muscle use ABD:bowel sounds normal, soft, non-tender, no guarding, rebound, rigidity, no masses noted, no hepatosplenomegaly :No CVA tenderness, [male/female exam] MSCL: Non-tender, no muscle atrophy, muscles strength 5/5 upper and lower extremities, full range of motion, normal gait NEURO:CN 2-12 intact, sensation normal. SKIN: No rash, erythema or other skin changes Initial Vital Signs Initial Vital Signs: Vital Signs Temperature 97.9 F 11/29/22 08:41 Pulse Rate 68 11/29/22 08:41 Respiratory Rate 18 11/29/22 08:41 Blood Pressure 150/67 H 11/29/22 08:41 Pulse Oximetry 98 11/29/22 08:41 Oxygen Delivery Method Room Air 11/29/22 08:41 Course Orders Ordered: ED Orders 11/29/22 08:54 Urinalysis and Microscopic Stat 11/29/22 09:10 Chest [XR chest 2V] Stat Vital Signs Vital signs: Vital Signs - 8 hr 11/29/22 08:41 11/29/22 08:42 Temperature 97.9 F Pulse Rate 68 76 Respiratory Rate 18 Blood Pressure 150/67 H Pulse Oximetry 98 98 Oxygen Delivery Method Room Air MDM - SOB/Dyspnea Lab Data Labs: Lab Results 11/29/22 Range/Units 08:54 Urine Color Yellow Urine Appearance Clear Urine pH 5.5 (4.5-8.0) Ur Specific [place] 1.020 (1.000-1.035) Urine Protein 2+ H (Negative) Urine Glucose (UA) Negative (Negative) g/dL Urine Ketones Negative (NEGATIVE) Urine Occult Blood Negative (Negative) Urine Nitrate Negative (Negative) Urine Bilirubin Negative (NEGATIVE) Urine Urobilinogen 1.0 (0.2) E.U./dL Ur Leukocyte Esterase Negative (NEGATIVE) Urine RBC None seen (0-5/HPF) Urine WBC 0-1/hpf (0-5/HPF) Ur Squamous Epith Cells 0-1 /hpf (0-5/HPF) Urine Bacteria None seen (None) Ur Culture Indicated? Cult not indicated Urine Dip Bedside Urine Glucose Negative Bedside Urine Bilirubin - Negative Bedside Urine Ketone - Negative Urine Specific [place] 1.020 Bedside Urine Occult Blood - Negative Bedside Urine pH 6.0 Bedside Urine Protein + 30 Bedside Urine Urobilinogen - Negative Bedside Urine Nitrite - Negative Bedside Urine Leukocytes - Negative Esterase Imaging Data Chest x-ray: Radiologist's Impression: Close Chest X-Ray (Signed) Ayden Gonzalez - 11/29/22 Launch?Image [address] [address] XRay Report Signed Patient: Vignesh Sethi MR#: [id number] : 1945 Acct:[id number] Age/Sex: 77 / M Date of Service: 11/29/22 Loc: ED Accession Number: [id number] ?? Procedure: XR chest 2V Ordering Provider: Dorinda Covarrubias D.O. PROCEDURE:? XR CHEST 2V ? INDICATIONS:? fever, cough ? TECHNIQUE:? 2 views of the chest were acquired.? ? COMPARISON:? [facility], CR, XR CHEST 1 VIEW, 07/18/2022, 10:35.? [facility], CT, CT CHEST WO CON, 09/04/2022, 7:48.? [facility], CR, XR CHEST 2 VIEWS, 07/18/2022, 13:35.? [facility], CR, XR CHEST 1V, 07/17/2020, 19:49. ? FINDINGS:? ? Surgical changes and devices:? Left chest wall pacer is seen with intact leads. ? Lungs and pleura:? Diffuse bilateral airspace opacities have consistent with pulmonary vascular congestion.? A nodular density in the right lower lobe appears similar to a prior density on CT dated 09/04/2022.? No pleural effusions or pneumothorax.? ? Mediastinum:? Mediastinal contours are normal.? Heart size is normal.? ? Bones and chest wall:? No suspicious bony abnormalities.? Soft tissues appear unremarkable.? ? IMPRESSION:? 1. Prominent bilateral perihilar airspace opacities are probably vasculature.? 2. Nodular density in the right lower lobe adjacent to the diaphragm appear similar to a density on prior CT on 09/04/2022.? This also could be a nipple shadow.? Recommend follow-up imaging to resolution.? ? ? Dictated by: Ayden Gonzalez M.D. on 11/29/2022 at 9:38 ? ? Approved by: Ayden Gonzalez M.D. on 11/29/2022 at 9:43?? MDM Narrative Medical decision making narrative: 77-year-old male presents with 5 days of fever, chest congestion with nonproductive cough, myalgias. Patient had negative COVID test earlier in the week. He defers additional here today. He does have more at home he states he can test with. Discussed with patient could be viral but chest x-ray was obtained and shows some possible congestion I suspect he may have potential pneumonia. There is what appears to be nodule and patient states he is aware of this and it was followed. After discussion with patient plan to start oral antibiotic but patient will do home test positive for COVID may hold antibiotic. We discussed patient's x-ray findings today and return precautions. Discharge Plan Departure Patient Disposition: Home Clinical Impression: Pneumonia Instructions: DI for Pneumonia -- Adult Activity Restrictions/Additional Instructions: Your chest x-ray shows some mild congestion, you may be developing some pneumonia. If you test positive for COVID at home you do not have to start an antibiotic but I think it would be appropriate today. You can continue Tylenol as needed for fevers. Prescription for antibiotics sent to [facility] in [place] Please return for new or worsening chest pain, shortness of breath, coughing up blood, persistent fevers, lightheadedness or passing out, new swelling in her extremities or other new or concerning changes. Prescriptions: New amoxicillin-pot clavulanate 875-125 mg tablet 1 tab PO Q12H Qty: 14 0RF No Action apixaban 5 mg tablet 5 mg PO BID Qty: 180 3RF Arnuity Ellipta 50 mcg/actuation blister with device 1 inh inhalation DAILY Qty: 30 2RF aspirin [Adult Aspirin Regimen] 81 mg tablet,delayed release (DR/EC) 81 mg PO DAILY atorvastatin 40 mg tablet 40 mg PO DAILY Qty: 90 3RF levothyroxine 88 mcg tablet 88 mcg PO DAILY Qty: 90 3RF lisinopril 20 mg tablet 20 mg PO DAILY Qty: 90 3RF amlodipine 5 mg tablet 5 mg PO BEDTIME Qty: 90 3RF melatonin 5 mg Tablet 5 mg PO DAILY tamsulosin 0.4 mg capsule 0.4 mg PO .B.i.d. Qty: 180 3RF Rx Instructions: Take 1 tablet 30 minutes after morning meal and at bedtime as directed. Referrals: Elbert Betancourt DO [Primary Care Provider] - Stand Alone Forms: Patient Portal/API
[2022-11-29 10:21] VITALS: BP 130/61; PULSE 84; RESP 19; O2SAT 97
== END 2022-11-29 10:22 | disposition home or self-care (01) ==
PROVIDERS: Emergency Provider Emergency Medicine; PCP Family Medicine
DX: J18.9 Pneumonia, unspecified organism (principal); Z87.891 Personal history of nicotine dependence
CPT/HCPCS: 71046; 81001; 81003; 99282; 99283

== ENCOUNTER → 2023-01-10 14:13 | Outpatient (CLI) | payer MEDICARE, OTHER, SELFPAY ==
--- NOTE | 2023-01-10 14:14 | DI.US.S_ITS ---
PROCEDURE: US CAROTID DOPPLER BI INDICATIONS: ATHEROSCLEROTIC DISEASE TECHNIQUE: Color and pulse Doppler interrogation was performed of both carotid systems, with image documentation and velocity measurements. COMPARISON: None. FINDINGS: Stenosis calculations are based on SRU (Society of Radiologists in Ultrasound) criteria. Right side: Brachial blood pressure: 103/70 mm Hg. Common carotid artery peak systolic velocity: 173 cm/sec. Internal carotid artery peak systolic velocity: 06/21/2039 cm/sec. Internal carotid artery end diastolic velocity: 642 cm/sec. External carotid artery peak systolic velocity: To 121 cm/sec. ICA/CCA peak systolic ratio: 1.9 Mcconnell scale imaging description: Moderate atherosclerotic change is seen, including shadowing calcification Percent internal carotid artery stenosis: 50-69% by velocity criteria. Vertebral artery: Flow direction is antegrade. Left side: Brachial blood pressure: 109/68 mm Hg. Common carotid artery peak systolic velocity: 68 cm/sec. Internal carotid artery peak systolic velocity: 45 cm/sec. Internal carotid artery end diastolic velocity: 16 cm/sec. External carotid artery peak systolic velocity: 198 cm/sec. ICA/CCA peak systolic ratio: 0.6 Mcconnell scale imaging description: Prominent atherosclerotic change is seen, including shadowing calcification. Percent internal carotid artery stenosis: Less than 50% by velocity criteria Vertebral artery: Flow direction is antegrade. IMPRESSION: By velocity criteria, there is a moderate stenosis (between 50 and 69% stenosis) within the right proximal internal carotid artery. The true degree of stenosis is felt most likely to be at the lower end of this range. Atherosclerotic calcification can be seen on both sides can be including shadowing calcification. By velocity criteria, there is a greater than 50% stenosis seen involving the left external carotid artery. If it would be helpful for clinical management decision making in this patient with this given history, please consider a dedicated CT angiogram for further evaluation. Dictated by: Jerry Leger M.D. on 01/10/2023 at 15:22 Approved by: Jerry Leger M.D. on 01/10/2023 at 15:25
== END ==
PROVIDERS: PCP Family Medicine; Referring Provider Family Medicine; Visit Provider Family Medicine
DX: I95.1 Orthostatic hypotension (principal); I65.23 Occlusion and stenosis of bilateral carotid arteries
CPT/HCPCS: 93880

== ENCOUNTER → 2023-03-05 07:02 | Outpatient (CLI) | payer MEDICARE, OTHER, SELFPAY ==
[2023-03-05 09:02] LABS: Add Manual Diff / Slide Review NO; Basophils Absolute Auto 0 /uL (0-100); Basophils Percent Auto 0.3 % (0-2); Eosinophils Absolute Auto 300 /uL (0-450); Eosinophils Percent Auto 7.5 % (2-4); Hematocrit 41.3 % (41-53); Lymphocytes Absolute Auto 700 /uL (1100-4500); Lymphocytes Percent Auto 17.8 % (25-40); Mean Corpuscular HGB Conc 33.8 % (30-36); Mean Corpuscular Hemoglobin 31.5 PG (26-34); Monocytes Absolute Auto 500 /uL (0-900); Monocytes Percent Auto 12.1 % (3-14); Neutrophils Absolute Auto 2400 /uL (1500-7000); Neutrophils Percent Auto 62.3 % (50-75); Platelet Count 238 X10^3/uL (150-400); Red Blood Cell Count 4.44 X10^6/uL (4.5-5.9); Red Cell Distribution Width 13.8 % (11.6-14.8); White Blood Cell Count 3.9 X10^3/uL (4.5-11.0)
[2023-03-05 09:20] LABS: Alanine Aminotransferase 26 IU/L (<50); Albumin 3.9 g/dL (3.5-5.0); Albumin Globulin Ratio 1.6 (1.0-2.8); Alkaline Phosphatase 74 U/L (38-126); Aspartate Aminotransferase 32 IU/L (17-59); Bilirubin Total 1.3 mg/dL (0.2-1.3); Blood Urea Nitrogen 21 mg/dL (9-20); Calcium 9.3 mg/dL (8.4-10.2); Carbon Dioxide 28 mmol/L (22-32); Chloride 103 mmol/L (98-107); Cholesterol 134 mg/dL (140-199); Estimated Glomerular Filt Rate > 60 mL/min (>60); Globulin 2.5 g/dL (1.7-4.1); Glucose 97 mg/dL (80-110); HDL Cholesterol 49 mg/dL (40-60); HEMOLYSIS < 15 (0-50); LDL Cholesterol Calculated 72 mg/dL (<100); Potassium 4.3 mmol/L (3.4-5.1); Sodium 137 mmol/L (137-145); Total Protein 6.4 g/dL (6.3-8.2); Triglycerides 65 mg/dL (35-150)
[2023-03-05 09:51] LABS: Prostate Specific Antigen Scrn 2.47 ng/mL (0.1-4.0)
== END ==
PROVIDERS: PCP Family Medicine; Referring Provider Family Medicine; Visit Provider Family Medicine
DX: I21.4 Non-ST elevation (NSTEMI) myocardial infarction (principal); Z12.5 Encounter for screening for malignant neoplasm of prostate; N40.1 Benign prostatic hyperplasia with lower urinary tract symptoms; N13.8 Other obstructive and reflux uropathy; I10 Essential (primary) hypertension; Z80.42 Family history of malignant neoplasm of prostate
CPT/HCPCS: 36415; 80053; 80061; 85025; G0103

== ENCOUNTER → 2023-03-25 08:18 | Outpatient (CLI) | payer MEDICARE, OTHER, SELFPAY ==
--- NOTE | 2023-03-25 08:20 | DI.CT.S_ITS ---
PROCEDURE: CT CHEST WO CON INDICATIONS: Pulmonary nodule, eval for interval change TECHNIQUE: Noncontrast 5 mm thick sections acquired from the pulmonary apices to the posterior costophrenic angles. 1 mm lung window, 5 mm thick coronal and sagittal and 7 mm axial MIP reformats were then acquired. For radiation dose reduction, the following was used: automated exposure control, adjustment of mA and/or kV according to patient size. COMPARISON: [facility], CT, CT CHEST WO CON, 09/04/2022, 7:48. FINDINGS: Image quality: Diagnostic. Lungs and pleura: Compared to prior CT 09/04/2022, there is decreased multifocal tree-in-bud nodularity, for example nodularity in the right middle lobe series 3, image 52. Left upper lobe solid pulmonary nodule has markedly decreased in size now measuring 0.4 cm (3/143, MIP image 76), previously 1.5 cm on 09/04/2022. No new or enlarging pulmonary nodule. No pleural effusions or pneumothorax. Central and peripheral airways are patent and normal in caliber. Mediastinum: Heart size is normal. No pericardial effusion. No mediastinal adenopathy by size criteria. Thoracic aorta and central pulmonary arteries are normal in size. Esophagus is normal in caliber. No hiatal hernia. Bones and chest wall: No suspicious bony lesions. No vertebral body compression fractures. No axillary or supraclavicular adenopathy by size criteria. No thyroid nodules which require sonographic follow up, per consensus guidelines. Left chest wall AICD device with leads in similar position. Extensive coronary artery calcifications/stents.. Upper Abdomen: Visualized upper abdominal solid organs and bowel loops appear normal in the absence of contrast. IMPRESSION: Compared to prior CT 09/04/2022, decreased size of left upper lobe solid pulmonary nodule. Decreased multifocal tree-in-bud nodularities, likely resolving inflammation/infection. Recommend follow-up CT chest in 6 months to demonstrate stability/resolution. Approved by: Joselin Wu M.D. on 03/25/2023 at 11:46
== END ==
PROVIDERS: PCP Family Medicine; Referring Provider Internal Medicine Critical Care Medicine; Visit Provider Internal Medicine Critical Care Medicine
DX: R91.8 Other nonspecific abnormal finding of lung field (principal)
CPT/HCPCS: 71250

== ENCOUNTER → 2023-05-23 08:57 | Outpatient (CLI) | payer MEDICARE, OTHER, SELFPAY ==
[2023-05-23 10:32] LABS: Free T4, Direct Thyroxine 1.14 ng/dL (0.78-2.19)
[2023-05-23 10:46] LABS: Thyroid Stimulating Hormone 1.91 uIU/mL (0.47-4.68)
[2023-05-23 10:51] LABS: Prostate Specific Antigen 2.59 ng/mL (0.10-4.00)
== END ==
PROVIDERS: PCP Family Medicine; Referring Provider Specialist; Visit Provider Specialist
DX: N40.1 Benign prostatic hyperplasia with lower urinary tract symptoms (principal); E03.9 Hypothyroidism, unspecified; N13.8 Other obstructive and reflux uropathy
CPT/HCPCS: 36415; 84153; 84439; 84443

== ENCOUNTER → 2023-09-10 08:19 | Outpatient (CLI) | payer MEDICARE, OTHER, SELFPAY ==
--- NOTE | 2023-09-10 08:20 | DI.CT.S_ITS ---
PROCEDURE: CT CHEST WO CON INDICATIONS: f/u nodule per radiologist review TECHNIQUE: Noncontrast 5 mm thick sections acquired from the pulmonary apices to the posterior costophrenic angles. 1 mm lung window, 5 mm thick coronal and sagittal and 7 mm axial MIP reformats were then acquired. For radiation dose reduction, the following was used: automated exposure control, adjustment of mA and/or kV according to patient size. COMPARISON: [facility], CT, CT CHEST WO CON, 03/25/2023, 8:25. [facility], CT, CT CHEST WO CON, 09/04/2022, 7:48. FINDINGS: Image quality: Diagnostic. Lower Neck: No enlarged lymph nodes. Thyroid: No thyroid nodules which require sonographic follow up, per consensus guidelines. Axillae: No enlarged lymph nodes. Chest Wall: Left chest wall generator with intravenous leads. Bones: Unremarkable. Lungs and Pleura: No pneumothorax or pleural effusions. Interval decrease in extent of tree-in-bud and centrilobular nodules. Resolved spiculated nodule in the lateral left upper lobe. Less conspicuous appearance of the focus of volume loss in the medial right middle lobe. Heart: Heart size is normal. No pericardial effusion. Three-vessel coronary calcifications with stents. Thoracic Vessels: The aorta and pulmonary arteries demonstrate normal size. Mediastinum and Chanda: No enlarged lymph nodes. Esophagus: No wall thickening. No hiatal hernia. Upper Abdomen: Visualized upper abdomen solid organs and bowel loops appear normal. IMPRESSION: Resolved left upper lobe spiculated nodule. Persistent tree-in-bud nodules, albeit decreased in extent. 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 Correlate with risk factors.. Dictated by: Mike Sanchez M.D. on 09/10/2023 at 12:01 Approved by: Mike Sanchez M.D. on 09/10/2023 at 12:06
== END ==
PROVIDERS: PCP Family Medicine; Referring Provider Family Medicine; Visit Provider Family Medicine
DX: R91.1 Solitary pulmonary nodule (principal); I25.10 Atherosclerotic heart disease of native coronary artery without angina pectoris; Z95.5 Presence of coronary angioplasty implant and graft
CPT/HCPCS: 71250

== ENCOUNTER 2023-09-27 06:40 | Day surgery (SDC) | payer MEDICARE, OTHER, SELFPAY ==
[2023-09-27] VITALS (9 sets, daily range): BP systolic 105–135; BP diastolic 45–80; PULSE 60–95; RESP 16; TEMP 36.1–36.2; O2SAT 94–98
[2023-09-27] MEDS: LACTATED RINGERS 1,000 ML 42 ML IV (07:36)
[2023-09-27] MEDS: LIDOCAINE 2% (GLYDO) 6 ML GEL TOP ×2 (07:52→07:55)
[2023-09-27] MEDS: LIDOCAINE 4% SOLN 50 ML 20 ML TOP (07:56)
--- NOTE | 2023-09-27 08:32 | P.OP.PRE_ITS ---
Pre-operative Note COVID-19 COVID-19 status: Negative Interval Note History & Physical reviewed/Exam performed by Physician: Yes Changes to H&P: No H&P completed within 30 days and has changed as indicated here:: Date of admission and procedure: September 27 2023 Procedure: Bronchoscopy, lavage Preprocedural assessment: The current H and P was reviewed. The patient was reexamined. Re-evaluation of the patient confirms the necessity for the scheduled procedure. No change as occurred in the patient's condition since the H&P was completed less than 30 days ago. Airway assessment: II ASA classification: ASA 2 Plan for sedation: Per anesthesia Sedation type: Moderate Medications: Lidocaine Consent: I have discussed with the patient and/or the patient community health program representative the indication, alternatives, and the possible risks and/or complications of the planned procedure in the anesthesia methods. The patient understands and agreed to proceed. Patient re-evaluated immediately prior to sedation and ready for sedation. ASA Class (for procedural sedation): II
--- NOTE | 2023-09-27 08:36 | HP_ITS ---
Pre-operative Note COVID-19 COVID-19 status: Negative Interval Note History & Physical reviewed/Exam performed by Physician: Yes Changes to H&P: No H&P completed within 30 days and has changed as indicated here:: Date of admission and procedure: September 27 2023 Procedure: Bronchoscopy, lavage Preprocedural assessment: The current H and P was reviewed. The patient was reexamined. Re-evaluation of the patient confirms the necessity for the scheduled procedure. No change as occurred in the patient's condition since the H&P was completed less than 30 days ago. Airway assessment: II ASA classification: ASA 2 Plan for sedation: Per anesthesia Sedation type: Moderate Medications: Lidocaine Consent: I have discussed with the patient and/or the patient outside medical sales representative the indication, alternatives, and the possible risks and/or complications of the planned procedure in the anesthesia methods. The patient understands and agreed to proceed. Patient re-evaluated immediately prior to sedation and ready for sedation. ASA Class (for procedural sedation): II Signed By:<Electronically signed by Salvatore Khoury MD> 09/27/23 0836
--- NOTE | 2023-09-27 08:37 | PM.PROC.1 ---
Procedures Date/Time Date of procedure: 09/27/23 Time of procedure: 08:00 General Procedure description: Procedure: Bronchoscopy, lavage Indication: Multiple pulmonary nodules, pneumonia Consent: Patient. All risks and benefits of the procedure were explained in detail. Sedation: See anesthesia record Procedure detail: Following a time-out for verification, conscious sedation initiated by anesthesia, the flexible fiberoptic bronchoscope was advanced in the patient's left naris. The vocal cords and vocal folds were grossly normal. Lidocaine, 320 mg applied to vocal cords. The anterior anatomy of the trachea, main wilian, main right and left airway segments and subsegments were all grossly normal and without endobronchial lesion. There were scant thin secretions which were easily suctioned. The right middle lobe was wedged and lavaged with normal saline, with return of mild cellular appearing, nonpurulent, nonbloody fluid. Following collection of fluid a quick reinspection of the airways this done, light suctioning and the procedure was terminated. The patient tolerated the procedure well. There were no complications. Specimens: To micro, routine culture, AFB Salvatore heart tongue 09/27/2023, 0882
== END 2023-09-27 09:18 | disposition home or self-care (01) ==
PROVIDERS: PCP Family Medicine; Referring Provider Internal Medicine Critical Care Medicine; Visit Provider Internal Medicine Critical Care Medicine
PROC: 0BJ08ZZ Inspection of Tracheobronchial Tree, Via Natural or Artificial Opening Endoscopic (ICD-10-PCS; CPT 31622; principal; 2023-09-27 07:45)
DX: R91.8 Other nonspecific abnormal finding of lung field (principal)
CPT/HCPCS: 31624; 87070; 87116; 87205; 87206; J2704

== ENCOUNTER → 2023-11-26 08:45 | Outpatient (CLI) | payer MEDICARE, OTHER, SELFPAY ==
[2023-11-26 10:41] LABS: Prostate Specific Antigen 2.53 ng/mL (0.10-4.00)
== END ==
PROVIDERS: PCP Family Medicine; Referring Provider Specialist; Visit Provider Specialist
DX: N40.1 Benign prostatic hyperplasia with lower urinary tract symptoms (principal); N13.8 Other obstructive and reflux uropathy
CPT/HCPCS: 36415; 84153

== ENCOUNTER → 2024-05-25 08:51 | Outpatient (CLI) | payer MEDICARE, OTHER, SELFPAY ==
[2024-05-25 10:24] LABS: Prostate Specific Antigen 2.91 ng/mL (0.10-4.00)
== END ==
PROVIDERS: PCP Family Medicine; Referring Provider Urology; Visit Provider Urology
DX: N40.1 Benign prostatic hyperplasia with lower urinary tract symptoms (principal); N13.8 Other obstructive and reflux uropathy; Z80.42 Family history of malignant neoplasm of prostate
CPT/HCPCS: 36415; 84153

== ENCOUNTER → 2024-10-20 10:12 | Outpatient (CLI) | payer MEDICARE, OTHER, SELFPAY ==
[2024-10-20 11:06] LABS: Alanine Aminotransferase 21 IU/L (<50); Albumin 4.1 g/dL (3.5-5.0); Albumin Globulin Ratio 1.6 (1.0-2.8); Alkaline Phosphatase 94 U/L (38-126); Blood Urea Nitrogen 31 mg/dL (9-20); Calcium 9.2 mg/dL (8.4-10.2); Carbon Dioxide 21 mmol/L (22-32); Chloride 107 mmol/L (98-107); Estimated Glomerular Filt Rate > 60 mL/min (>60); Globulin 2.6 g/dL (1.7-4.1); Glucose 109 mg/dL (70-99); HEMOLYSIS < 15 (0-50); Potassium 4.5 mmol/L (3.4-5.1); Sodium 137 mmol/L (137-145); Total Protein 6.7 g/dL (6.3-8.2)
[2024-10-20 11:18] LABS: Free T4, Direct Thyroxine 1.27 ng/dL (0.78-2.19)
[2024-10-20 11:32] LABS: Thyroid Stimulating Hormone 1.71 uIU/mL (0.47-4.68)
== END ==
PROVIDERS: PCP Family Medicine; Referring Provider Family Medicine; Visit Provider Nurse Practitioner Family
DX: I48.0 Paroxysmal atrial fibrillation (principal); E78.5 Hyperlipidemia, unspecified; I10 Essential (primary) hypertension; E03.9 Hypothyroidism, unspecified
CPT/HCPCS: 36415; 80053; 84439; 84443

== ENCOUNTER → 2025-01-04 06:52 | Outpatient (CLI) | payer MEDICARE, OTHER, SELFPAY ==
[2025-01-04 07:43] LABS: Add Manual Diff / Slide Review NO; Hematocrit 42.0 % (41-53); Hemoglobin 14.3 g/dL (13.5-17.5); Lymphocytes Absolute Auto 800 /uL (1100-4500); Mean Corpuscular HGB Conc 34.1 % (30-36); Mean Corpuscular Hemoglobin 31.5 PG (26-34); Mean Corpuscular Volume 92.4 fL (80-100); Platelet Count 215 X10^3/uL (150-400)
[2025-01-04 07:57] LABS: Blood Urea Nitrogen 34 mg/dL (9-20); Calcium 9.2 mg/dL (8.4-10.2); Carbon Dioxide 25 mmol/L (22-32); Chloride 103 mmol/L (98-107); Estimated Glomerular Filt Rate > 60 mL/min (>60); Glucose 103 mg/dL (70-99); HEMOLYSIS < 15 (0-50); Potassium 4.6 mmol/L (3.4-5.1); Sodium 136 mmol/L (137-145)
== END ==
PROVIDERS: PCP Family Medicine; Referring Provider Family Medicine; Visit Provider Nurse Practitioner Family
DX: I48.0 Paroxysmal atrial fibrillation (principal)
CPT/HCPCS: 36415; 80048; 85025